=== PATIENT | female | born 1950 | race Caucasian/White ===

== ENCOUNTER → 2019-02-06 | Outpatient (CLI) | payer MEDICARE ==
--- NOTE | 2019-02-06 15:09 | US ---
EXAMINATION TYPE: US thyroid st tissue head/neck DATE OF EXAM: 02/06/2019 COMPARISON: NONE CLINICAL HISTORY: R22.1 Localized swelling, mass and lump, neck. Hashimotos GLAND SIZE: Right Lobe: 4.5 x 2.2 x 1.6 cm Overall Parenchyma: heterogenous Left Lobe: 3.3 x 1.2 x 1.1 cm Overall Parenchyma: heterogeneous Isthmus Thickness: .6 cm NODULES RIGHT: # of nodules measured on right: 0 LEFT: # of nodules measured on left: 0 ISTHMUS: # of nodules measured in the isthmus: 0 Bilateral neck scanned, no evidence of lymphadenopathy. IMPRESSION: Normal thyroid ultrasound
== END | disposition home or self-care (01) ==
LOC: RADUSWWP 14:30
PROVIDERS: ATTEND Nurse Practitioner Family
DX: E06.3 Autoimmune thyroiditis (principal)
CPT/HCPCS: 76536

== ENCOUNTER 2023-12-05 09:55 | Inpatient (IN) | payer MEDICARE ==
--- NOTE | 2023-12-05 10:37 | ED ---
General Adult HPI - General Chief complaint: Shortness of Breath Stated complaint: HENNY Time Seen by Provider: 12/05/23 10:10 Source: patient, family, RN notes reviewed, old records reviewed Mode of arrival: wheelchair Limitations: no limitations - History of Present Illness Initial comments: This is a 73-year-old female who presents to the emergency department stating that for the last 2 weeks she has been taking albuterol and Atrovent and she states ever since she started taking it she has been feeling terrible. Patient states she just feels sick and short of breath. Patient states she is not 100% sure why her doctor all of a sudden put her on this. Patient denies fever chills. Patient has a cough. Patient Nuys any chest pain or palpitations. Patient has a headache patient has numbness weakness. Patient states she just feels weak and short of breath. - Related Data Home Medications Medication Instructions Recorded Confirmed Budesonide [Pulmicort] 0.5 mg INHALATION RT-BID 12/05/23 12/05/23 Famotidine [Pepcid] 20 mg PO DAILY 12/05/23 12/05/23 Ipratropium-Albuterol Nebulize 3 ml INHALATION RT-QID 12/05/23 12/05/23 [Duoneb 0.5 mg-3 mg/3 ml Soln] Levothyroxine Sodium [Synthroid] 75 mcg PO DAILY 12/05/23 12/05/23 Metoprolol Succinate (ER) [Toprol 100 mg PO DAILY 12/05/23 12/05/23 Xl] Valsartan 320 mg PO DAILY 12/05/23 12/05/23 amLODIPine [Norvasc] 5 mg PO DAILY 12/05/23 12/05/23 Allergies Allergy/AdvReac Type Severity Reaction Status Date / Time No Known Allergies Allergy Verified 12/05/23 10:06 Review of Systems ROS Statement: Those systems with pertinent positive or pertinent negative responses have been documented in the HPI. ROS Other: All systems not noted in ROS Statement are negative. Past Medical History Past Medical History: COPD, GERD/Reflux, Hypertension Past Surgical History: Tonsillectomy Smoking Status: Former smoker Past Alcohol Use History: None Reported Past Drug Use History: None Reported General Exam - General Exam Comments Initial Comments: GENERAL: Patient is well-developed and well-nourished. Patient is nontoxic and well-hyd rated and is in mild distress. ENT: Neck is soft and supple. No significant lymphadenopathy is noted. Oropharynx is clear. Moist mucous membranes. Neck has full range of motion without eliciting any pain. EYES: The sclera were anicteric and conjunctiva were pink and moist. Extraocular movements were intact and pupils were equal round and reactive to light. Eyelids were unremarkable. PULMONARY: Unlabored respirations. Good breath sounds bilaterally. No audible rales rhonchi or wheezing was noted. CARDIOVASCULAR: There is a regular rate and rhythm without any murmurs gallops or rubs. ABDOMEN: Soft and nontender with normal bowel sounds. SKIN: Skin is clear with no lesions or rashes and otherwise unremarkable. NEUROLOGIC: Patient is alert and oriented x3. Cranial nerves II through XII are grossly intact. Motor and sensory are also intact. Normal speech, volume and content. Symmetrical smile. MUSCULOSKELETAL: Normal extremities with adequate strength and full range of motion. 2+ edema more so on the right than the left LYMPHATICS: No significant lymphadenopathy is noted PSYCHIATRIC: Normal psychiatric evaluation. Limitations: no limitations Course Vital Signs 12/05/23 12/05/23 12/05/23 10:07 10:32 11:15 Temperature 98.6 F Pulse Rate 98 Respiratory 20 22 Rate Blood Pressure 133/80 O2 Sat by Pulse 81 L Oximetry 12/05/23 12/05/23 11:40 12:50 Temperature Pulse Rate 97 87 Respiratory 18 18 Rate Blood Pressure 134/80 O2 Sat by Pulse 100 91 L Oximetry Medical Decision Making - Medical Decision Making EKG is interpreted by myself. EKG shows a sinus rhythm with occasional PACs at a rate of 91 bpm. Over the 144 QRS is 122 QT interval 372 QTc is 421. Patient's EKG shows no ST segment elevation or depression. Was pt. sent in by a medical professional or institution (, PA, PATTERN RULER, urgent care, hospital, or long term...) When possible be specific @ -No Did you speak to anyone other than the patient for history (EMS, parent, family, police, friend...)? What history was obtained from this source @ -No Did you review nursing and triage notes (agree or disagree)? Why? @ -I reviewed and agree with nursing and triage notes Were old charts reviewed (outside hosp., previous admission, EMS record, old EKG, old radiological studies, urgent care reports/EKG's, long term records)? Report findings @ -No old charts were reviewed Differential Diagnosis? @ -Differential Dyspnea: Coronary syndrome, arrhythmia, tamponade, asthma, COPD, pulmonary embolism, pneumonia, pneumothorax, pulmonary effusion, anaphylaxis, diabetic ketoacidosis, flailed chest, pulmonary contusion, diaphragmatic rupture, anemia, neuromuscular, this is not meant to be an all-inclusive list. EKG interpreted by me (3pts min.). @ -As above X-rays interpreted by me (1pt min.). @ -Chest x-ray shows COPD with a small pleural effusion CT interpreted by me (1pt min.). @ -CT scan shows no pulmonary embolism no pulmonary edema there is a small pleural effusion. U/S interpreted by me (1pt. min.). @ -None done What testing was considered but not performed or refused? (CT, X-rays, U/S, lab s)? Why? @ -None What meds were considered but not given or refused? Why? @ -None Did you discuss the management of the patient with other professionals (professionals i.e. , PA, PATTERN RULER, lab, RT, psych nurse, clinical social work aide, cartography technician, teacher, security flex officer, case management associate)? Give summary @ -I spoke with Dr. Lynn he wanted to admit the patient admit the patient I consulted Dr. Pagan Was smoking cessation discussed for >3mins.? @ -No Was critical care preformed (if so, how long)? @ -35 minutes Were there social determinants of health that impacted care today? How? (Homelessness, low income, unemployed, alcoholism, drug addiction, transportation, low edu. Level, literacy, decrease access to med. care, long-term, rehab)? @ -No Was there de-escalation of care discussed even if they declined (Discuss DNR or withdrawal of care, Hospice)? DNR status @ -No What co-morbidities impacted this encounter? (DM, HTN, Smoking, COPD, CAD, Cancer, CVA, ARF, Chemo, Hep., AIDS, mental health diagnosis, sleep apnea, morbid obesity)? @ -None Was patient admitted / discharged? Hospital course, mention meds given and route, prescriptions, significant lab abnormalities, going to OR and other pertinent info. @ -COPD exacerbation. Patient did not want albuterol treatments initially however I did order them once we determined there was no other underlying problem. Patient also had Agustín Medrol and Rocephin. I will admit the patient to Dr. Lynn and I consulted Dr. Pagan. Patient's initial pulse ox on ar rival was in the 60s on a few liters the patient is now in the 90s. Undiagnosed new problem with uncertain prognosis? @ -No Drug Therapy requiring intensive monitoring for toxicity (Heparin, Nitro, In sulin, Cardizem)? @ -No Were any procedures done? @ -No Diagnosis/symptom? @ -Acute exacerbation of COPD Acute, or Chronic, or Acute on Chronic? @ -Acute Uncomplicated (without systemic symptoms) or Complicated (systemic symptoms)? @ -Complicated Side effects of treatment? @ -No Exacerbation, Progression, or Severe Exacerbation? @ -No Poses a threat to life or bodily function? How? (Chest pain, [place], ND, pneumonia, PE, COPD, DKA, ARF, appy, cholecystitis, CVA, Diverticulitis, Homicidal, Suicidal, threat to staff... and all critical care pts) @ -Yes this could lead to hypoxia and endorgan dysfunction - Lab Data Result diagrams: 12/05/23 11:00 12/05/23 12:03 Lab Results 12/05/23 12/05/23 12/05/23 Range/Units 11:00 11:00 11:00 WBC 8.1 (3.8-10.6) k/uL RBC 5.71 H (3.80-5.40) m/uL Hgb 18.0 H (11.4-16.0) gm/dL Hct 57.7 H* (34.0-46.0) % MCV 101.0 H (80.0-100.0) fL MCH 31.5 (25.0-35.0) pg MCHC 31.1 (31.0-37.0) g/dL RDW 13.8 (11.5-15.5) % Plt Count 173 (150-450) k/uL MPV 9.4 Neutrophils % 89 % Lymphocytes % 6 % Monocytes % 4 % Eosinophils % 1 % Basophils % 0 % Neutrophils # 7.2 (1.3-7.7) k/uL Lymphocytes # 0.5 L (1.0-4.8) k/uL Monocytes # 0.3 (0-1.0) k/uL Eosinophils # 0.0 (0-0.7) k/uL Basophils # 0.0 (0-0.2) k/uL Hypochromasia Moderate Macrocytosis Slight PT (10.0-12.5) sec INR (<1.2) APTT (22.0-30.0) sec D-Dimer (<0.60) mg/L FEU Sample Site ABG pH (7.35-7.45) ABG pCO2 (35-45) mmHg ABG pO2 (83-108) mmHg ABG HCO3 (21-25) mmol/L ABG Total CO2 (19-24) mmol/L ABG O2 Saturation (94-97) % ABG Base Excess mmol/L Harvey Test Hemoglobin (11.4-16.0) gm/dL FiO2 % Sodium (137-145) mmol/L Potassium (3.5-5.1) mmol/L Chloride (98-107) mmol/L Carbon Dioxide (22-30) mmol/L Anion Gap mmol/L BUN (7-17) mg/dL Creatinine (0.52-1.04) mg/dL Est GFR (CKD-EPI)AfAm (>60 ml/min/1.73 sqM) Est GFR (CKD-EPI)NonAf (>60 ml/min/1.73 sqM) Glucose (74-99) mg/dL Lactic Ac Sepsis Rflx Plasma Lactic Acid Anibal 2.6 H* (0.7-2.0) mmol/L Calcium (8.4-10.2) mg/dL Magnesium (1.6-2.3) mg/dL Total Bilirubin (0.2-1.3) mg/dL AST (14-36) U/L ALT (4-34) U/L Alkaline Phosphatase (38-126) U/L Troponin I (0.000-0.034) ng/mL NT-Pro-B Natriuret Pep pg/mL Total Protein (6.3-8.2) g/dL Albumin (3.5-5.0) g/dL Influenza Type A (PCR) Not Detected (Not Detectd) Influenza Type B (PCR) Not Detected (Not Detectd) RSV (PCR) Not Detected (Not Detectd) SARS-CoV-2 (PCR) Not Detected (Not Detectd) 12/05/23 12/05/23 12/05/23 Range/Units 11:30 11:57 11:57 WBC (3.8-10.6) k/uL RBC (3.80-5.40) m/uL Hgb (11.4-16.0) gm/dL Hct (34.0-46.0) % MCV (80.0-100.0) fL MCH (25.0-35.0) pg MCHC (31.0-37.0) g/dL RDW (11.5-15.5) % Plt Count (150-450) k/uL MPV Neutrophils % % Lymphocytes % % Monocytes % % Eosinophils % % Basophils % % Neutrophils # (1.3-7.7) k/uL Lymphocytes # (1.0-4.8) k/uL Monocytes # (0-1.0) k/uL Eosinophils # (0-0.7) k/uL Basophils # (0-0.2) k/uL Hypochromasia Macrocytosis PT 11.2 (10.0-12.5) sec INR 1.0 (<1.2) APTT 20.1 L (22.0-30.0) sec D-Dimer 1.34 H (<0.60) mg/L FEU Sample Site lrad ABG pH 7.28 L (7.35-7.45) ABG pCO2 76 H* (35-45) mmHg ABG pO2 34 L* (83-108) mmHg ABG HCO3 36 H (21-25) mmol/L ABG Total CO2 38 H (19-24) mmol/L ABG O2 Saturation 56.0 L (94-97) % ABG Base Excess 5.6 mmol/L Harvey Test Yes Hemoglobin 17.1 H (11.4-16.0) gm/dL FiO2 21 % Sodium (137-145) mmol/L Potassium (3.5-5.1) mmol/L Chloride (98-107) mmol/L Carbon Dioxide (22-30) mmol/L Anion Gap mmol/L BUN (7-17) mg/dL Creatinine (0.52-1.04) mg/dL Est GFR (CKD-EPI)AfAm (>60 ml/min/1.73 sqM) Est GFR (CKD-EPI)NonAf (>60 ml/min/1.73 sqM) Glucose (74-99) mg/dL Lactic Ac Sepsis Rflx Plasma Lactic Acid Anibal (0.7-2.0) mmol/L Calcium (8.4-10.2) mg/dL Magnesium (1.6-2.3) mg/dL Total Bilirubin (0.2-1.3) mg/dL AST (14-36) U/L ALT (4-34) U/L Alkaline Phosphatase (38-126) U/L Troponin I <0.012 (0.000-0.034) ng/mL NT-Pro-B Natriuret Pep pg/mL Total Protein (6.3-8.2) g/dL Albumin (3.5-5.0) g/dL Influenza Type A (PCR) (Not Detectd) Influenza Type B (PCR) (Not Detectd) RSV (PCR) (Not Detectd) SARS-CoV-2 (PCR) (Not Detectd) 12/05/23 12/05/23 12/05/23 Range/Units 11:58 11:58 12:03 WBC (3.8-10.6) k/uL RBC (3.80-5.40) m/uL Hgb (11.4-16.0) gm/dL Hct (34.0-46.0) % MCV (80.0-100.0) fL MCH (25.0-35.0) pg MCHC (31.0-37.0) g/dL RDW (11.5-15.5) % Plt Count (150-450) k/uL MPV Neutrophils % % Lymphocytes % % Monocytes % % Eosinophils % % Basophils % % Neutrophils # (1.3-7.7) k/uL Lymphocytes # (1.0-4.8) k/uL Monocytes # (0-1.0) k/uL Eosinophils # (0-0.7) k/uL Basophils # (0-0.2) k/uL Hypochromasia Macrocytosis PT (10.0-12.5) sec INR (<1.2) APTT (22.0-30.0) sec D-Dimer (<0.60) mg/L FEU Sample Site lrad ABG pH 7.30 L (7.35-7.45) ABG pCO2 72 H* (35-45) mmHg ABG pO2 35 L* (83-108) mmHg ABG HCO3 36 H (21-25) mmol/L ABG Total CO2 38 H (19-24) mmol/L ABG O2 Saturation 60.8 L (94-97) % ABG Base Excess 5.7 mmol/L Harvey Test Yes Hemoglobin 17.5 H (11.4-16.0) gm/dL FiO2 21 % Sodium 139 (137-145) mmol/L Potassium 5.0 (3.5-5.1) mmol/L Chloride 99 (98-107) mmol/L Carbon Dioxide 34 H (22-30) mmol/L Anion Gap 6 mmol/L BUN 27 H (7-17) mg/dL Creatinine 0.68 (0.52-1.04) mg/dL Est GFR (CKD-EPI)AfAm >90 (>60 ml/min/1.73 sqM) Est GFR (CKD-EPI)NonAf 86 (>60 ml/min/1.73 sqM) Glucose 101 H (74-99) mg/dL Lactic Ac Sepsis Rflx Y Plasma Lactic Acid Anibal (0.7-2.0) mmol/L Calcium 9.4 (8.4-10.2) mg/dL Magnesium 2.1 (1.6-2.3) mg/dL Total Bilirubin 1.2 (0.2-1.3) mg/dL AST 23 (14-36) U/L ALT 16 (4-34) U/L Alkaline Phosphatase 80 (38-126) U/L Troponin I (0.000-0.034) ng/mL NT-Pro-B Natriuret Pep 3490 pg/mL Total Protein 8.7 H (6.3-8.2) g/dL Albumin 4.8 (3.5-5.0) g/dL Influenza Type A (PCR) (Not Detectd) Influenza Type B (PCR) (Not Detectd) RSV (PCR) (Not Detectd) SARS-CoV-2 (PCR) (Not Detectd) 12/05/23 Range/Units 14:07 WBC (3.8-10.6) k/uL RBC (3.80-5.40) m/uL Hgb (11.4-16.0) gm/dL Hct (34.0-46.0) % MCV (80.0-100.0) fL MCH (25.0-35.0) pg MCHC (31.0-37.0) g/dL RDW (11.5-15.5) % Plt Count (150-450) k/uL MPV Neutrophils % % Lymphocytes % % Monocytes % % Eosinophils % % Basophils % % Neutrophils # (1.3-7.7) k/uL Lymphocytes # (1.0-4.8) k/uL Monocytes # (0-1.0) k/uL Eosinophils # (0-0.7) k/uL Basophils # (0-0.2) k/uL Hypochromasia Macrocytosis PT (10.0-12.5) sec INR (<1.2) APTT (22.0-30.0) sec D-Dimer (<0.60) mg/L FEU Sample Site ABG pH (7.35-7.45) ABG pCO2 (35-45) mmHg ABG pO2 (83-108) mmHg ABG HCO3 (21-25) mmol/L ABG Total CO2 (19-24) mmol/L ABG O2 Saturation (94-97) % ABG Base Excess mmol/L Harvey Test Hemoglobin (11.4-16.0) gm/dL FiO2 % Sodium (137-145) mmol/L Potassium (3.5-5.1) mmol/L Chloride (98-107) mmol/L Carbon Dioxide (22-30) mmol/L Anion Gap mmol/L BUN (7-17) mg/dL Creatinine (0.52-1.04) mg/dL Est GFR (CKD-EPI)AfAm (>60 ml/min/1.73 sqM) Est GFR (CKD-EPI)NonAf (>60 ml/min/1.73 sqM) Glucose (74-99) mg/dL Lactic Ac Sepsis Rflx Plasma Lactic Acid Anibal 1.4 (0.7-2.0) mmol/L Calcium (8.4-10.2) mg/dL Magnesium (1.6-2.3) mg/dL Total Bilirubin (0.2-1.3) mg/dL AST (14-36) U/L ALT (4-34) U/L Alkaline Phosphatase (38-126) U/L Troponin I (0.000-0.034) ng/mL NT-Pro-B Natriuret Pep pg/mL Total Protein (6.3-8.2) g/dL Albumin (3.5-5.0) g/dL Influenza Type A (PCR) (Not Detectd) Influenza Type B (PCR) (Not Detectd) RSV (PCR) (Not Detectd) SARS-CoV-2 (PCR) (Not Detectd) Disposition Clinical Impression: COPD with acute exacerbation Disposition: ADMITTED IP TO THIS HOSP Referrals: Jared Lynn MD [Primary Care Provider] - 1-2 days Time of Disposition: 14:23
[2023-12-05 11:12] LABS: Basophils % (A) 0 %; Eosinophils % (A) 1 %; Hypochromasia Moderate; Lymphocytes # (A) 0.5 k/uL (1.0-4.8); Lymphocytes % (A) 6 %; MCH 31.5 pg (25.0-35.0); MCHC 31.1 g/dL (31.0-37.0); Macrocytosis Slight; Mean Platelet Volume 9.4; Monocytes # (A) 0.3 k/uL (0-1.0); Monocytes % (A) 4 %; Neutrophils # (A) 7.2 k/uL (1.3-7.7); Neutrophils % (A) 89 %; Platelet Count 173 k/uL (150-450); RBC 5.71 m/uL (3.80-5.40); RDW 13.8 % (11.5-15.5); WBC 8.1 k/uL (3.8-10.6)
[2023-12-05 11:32] LABS: HCT 57.7 % (34.0-46.0)
[2023-12-05 11:33] LABS: ABG Base Excess 5.6 mmol/L; ABG HCO3 36 mmol/L (21-25); ABG PH 7.28 (7.35-7.45); ABG TCO2 38 mmol/L (19-24); Allen Test Performed? Yes
[2023-12-05 12:03] LABS: ABG Base Excess 5.7 mmol/L; ABG HCO3 36 mmol/L (21-25); ABG Oxygen Saturation 60.8 % (94-97); ABG TCO2 38 mmol/L (19-24); Allen Test Performed? Yes
[2023-12-05 12:14] LABS: ABG PCO2 76 mmHg (35-45); ABG PO2 34 mmHg (83-108)
[2023-12-05 12:15] LABS: ABG PCO2 72 mmHg (35-45); ABG PO2 35 mmHg (83-108)
[2023-12-05 12:50] LABS: ALT 16 U/L (4-34); AST 23 U/L (14-36); African American GFR (CKD) >90 (>60 ml/min/1.73 sqM); Albumin 4.8 g/dL (3.5-5.0); Alkaline Phosphatase 80 U/L (38-126); Anion Gap 6 mmol/L; Blood Urea Nitrogen 27 mg/dL (7-17); Calcium 9.4 mg/dL (8.4-10.2); Carbon Dioxide 34 mmol/L (22-30); Chloride 99 mmol/L (98-107); Glucose 101 mg/dL (74-99); Magnesium 2.1 mg/dL (1.6-2.3); Non-African American GFR(CKD) 86 (>60 ml/min/1.73 sqM); Sodium 139 mmol/L (137-145); Total Bilirubin 1.2 mg/dL (0.2-1.3); Total Protein 8.7 g/dL (6.3-8.2)
[2023-12-05 12:51] LABS: Partial Thromboplastin Time 20.1 sec (22.0-30.0); Prothrombin Time 11.2 sec (10.0-12.5)
[2023-12-05 12:59] LABS: NT-Pro-B-Type Natriuretic Pept 3490 pg/mL
[2023-12-05] MEDS: FUROSEMIDE 10 MG/ML 4 ML VIAL IV STA (14:31)
--- NOTE | 2023-12-05 14:56 | CT ---
EXAMINATION TYPE: CT chest angio for PE CT DLP: 195.6 mGycm, Automated exposure control for dose reduction was used. DATE OF EXAM: 12/05/2023 1:29 PM COMPARISON: Chest radiograph from same day. CLINICAL INDICATION:Female, 73 years old with history of Elevated D-dimer, shortness of breath; [place] jaime D-dimer, shortness of breath TECHNIQUE/CONTRAST: CTA scan of the thorax is performed with IV Contrast, patient injected with 100 mL of Isovue 370, pul monary embolism protocol. MIP images are created and reviewed. FINDINGS: Pulmonary Artery: There is no evidence for a filling defect within the pulmonary vasculature to sugge st acute pulmonary embolism. The pulmonary artery is mildly prominent measuring 3.0 cm diameter. Lungs/Pleura: Biapical pleural-parenchymal scarring. Moderate centrilobular emphysematous change. No pneumothorax. Small left pleural effusion with adjacent atelectasis. No focal consolidation. Fat fill ed right small Bochdalek hernia. No suspicious pulmonary nodule or mass. Regions of mosaic attenuatio n likely representing air trapping. Airway: Large airways are patent. Heart: Mildly prominent in size. No pericardial effusion. Small coronary artery calcifications. Vasculature: No evidence of thoracic aortic aneurysm. Infrarenal abdominal aortic aneurysm at least 3 .2 cm. Eccentric mural thrombus suggested. Moderate atherosclerotic calcification of the aorta and it s branches. Mild atherosclerotic calcification of the aorta and its branches. Mediastinum: Mildly enlarged mediastinal lymph nodes including an AP window lymph node measuring 1.1 cm (series 401, image 49). Musculoskeletal: No acute osseous abnormalities Soft Tissues: Unremarkable. Lower neck: No significant findings. Upper Abdomen: Small region of low attenuation adjacent to the falciform ligament likely representing focal fatty infiltration.. IMPRESSION: 1. No evidence of pulmonary embolism. 2. Small left pleural effusion with associated atelectasis. 3. Moderate COPD changes. 4. Nonspecific mildly enlarged mediastinal lymph nodes. May be reactive. 5. Partial visualization of infrarenal abdominal aortic aneurysm measuring at least 3.2 cm. [facility], , 12/05/2023 1:39 PM
--- NOTE | 2023-12-05 14:56 | XR ---
EXAMINATION TYPE: XR chest 2V DATE OF EXAM: 12/05/2023 12:40 PM COMPARISON: None TECHNIQUE: XR chest 2V Frontal and lateral views of the chest. CLINICAL INDICATION:Female, 73 years old with history of difficulty breathing; FINDINGS: Lungs/Pleura: Blunting of the left costophrenic angle. Hyperinflation. No focal consolidation or pneu mothorax. Pulmonary vascularity: Mild pulmonary vascular congestion. Heart/mediastinum: Cardiomediastinal silhouette is mildly enlarged. Musculoskeletal: No acute osseous pathology. IMPRESSION: 1. Cardiomegaly, pulmonary vascular congestion and small left pleural effusion. Correlate with BNP f or congestive heart failure. 2. COPD changes. [facility], , 12/05/2023 12:45 PM
[2023-12-05] MEDS ORDERED: IPRATROPIUM-ALBUTEROL 3 ML NEB INHALATION PRN (15:18)
[2023-12-05] MEDS ORDERED: NALOXONE 0.4 MG/ML 1 ML VIAL IVP PRN (15:18)
[2023-12-05] MEDS: IPRATROPIUM-ALBUTEROL 3 ML NEB INHALATION STA (15:34)
[2023-12-05] MEDS: IPRATROPIUM-ALBUTEROL 3 ML NEB INHALATION SCH (15:40)
[2023-12-05] MEDS: ONDANSETRON 4 MG/2 ML VIAL IVP STA (16:26)
[2023-12-05] MEDS: methylPREDNISolone SOD SUCCI 125 MG/2 ML VIAL IV STA (16:27)
[2023-12-05] MEDS: ONDANSETRON 4 MG/2 ML VIAL IVP PRN (16:29)
[2023-12-05] MEDS ORDERED: NITROGLYCERIN OINT 1 INCH/GM PACKET TOPICAL SCH (18:00)
[2023-12-05] MEDS: BUDESONIDE 0.5 MG/2 ML NEBU INHALATION SCH (20:33)
[2023-12-05] MEDS ORDERED: ENALAPRILAT 1.25 MG/ML 1 ML VIAL IVP PRN (21:59)
--- NOTE | 2023-12-05 21:59 | P.HPIM ---
History of Present Illness H&P Date: 12/05/23 HISTORY OF PRESENT ILLNESS: 73-year-old with active medical history of COPD, GERD, hypertension, hyperlipidemia, chronic lower back pain and osteoarthritis who has been seen in our office for the last Few years has not been hospitalized anytime recent. Who presented to the emergency department today complaining of worsening symptoms for last 2 weeks apparently has been taking combined albuterol/ipratropium and DuoNeb nebulizer for the last week and her symptoms become much worse. Patient was seen earlier in the office her oxygenation was quite bit low recommended to be on O2 at home she refused but she agreed to give nebulizer treatment management because her regular rescue inhaler is not working anymore. The claim that since she started her nebulizer treatment that she has not felt good she denies any fever or chills she had mild cough and quite wheezing palpitation and mild exertional symptoms. Also has been having slight headache with generalized weakness she is following sleep easily as well. She was seen and evaluated her laboratory value shows normal CBC but hemoglobin 18.0 hematocrit 57.7 with significant polycythemia secondary to COPD. ABG showed pCO2 of 76 with pO2 of 34 pH of 7.28 and saturation of only 56. Electrolyte and chemistry shows creatinine of 0.68 with GFR of 86 blood sugar was normal normal liver function test total protein was 8.7 with BNP of 3490 lactic acid was slightly elevated As she was on oxygen and treated had improved significantly. Chest x-ray shows cardiomegaly with pulmonary vascular congestion and small left pleural effusion correlate with congestive heart failure and COPD. She had slightly elevated D-dimer and that doing CTA findings with no evidence of pulmonary embolism small left-sided pleural effusion with association of atelectasis, moderate COPD nonspecific mildly enlarged mediastinal lymph node and partially visualization of the infrarenal abdominal aortic aneurysm size 3.2 cm. With the current symptoms patient was started on DuoNeb, Pulmicort, Solu-Medrol, antibiotics with Augmentin was started patient was hospitalized will be seen pulmonary echocardiogram was ordered she will be on diuretics beside updraft antibiotic Solu-Medrol. REVIEW OF SYSTEMS: CONSTITUTIONAL: Well-developed mild respiratory distress EYES: No icterus sclerae, no conjunctivitis. EARS, NOSE, MOUTH, THROAT, and FACE: No sore throat, lymphadenopathy, carotid bruits or deformity. RESPIRATORY: Positive shortness of breath cough and wheezes. CARDIOVASCULAR: Positive PND orthopnea palpitation. GASTROINTESTINAL: No Abd pain, Nausea or vomiting, no Diarrhea or constipation, No GI Bleed, no distention or masses. GENITOURINARY: Negative for Hematuria or UTI, no kidney stones. INTEGUMENT/BREAST: Negative for any muscular injury with mild osteoarthritis.. HEMATOLOGIC/LYMPHATIC: Negative for bleed or purpura. Positive polycythemia. MUSCULOSKELTAL: Generalized arthralgia and myalgia. NEURLOGICAL: No LOC, Sz or syncope, blurred vision dizziness or abnormality.. Mildly tiredness and drowsiness. BEHAVIORAL/PSYCH: Negative. ENDOCRINE: Negative. PHYSICAL EXAMINATION: General Appearance: Alert, cooperative, in mild respiratory distress. Neck HEENT: Supple, no lymphadenopathy, no thyroid enlargement, no carotid bruits. Lungs: Decreased breath sound bilaterally with fine rhonchi positive mild expiratory wheezes. Chest Wall: Decreased expansion with deep inspiration no tenderness and no deformity was found on exam, no costochondral pain or discomfort. Heart: Regular rhythm and rate, S1, S2 positive S3 positive PVCs Back: Symmetric, no curvature, ROM normal, no CVA tenderness. Abdomen: Soft, non-tender, bowel sounds active all four quadrants, no masses, no organomegaly. Extremities: Generalized arthralgia no edema. Pulses: 2+ and symmetric. Skin: Skin color, texture, tugor normal, no rashes or lesions. Neurologic: Alert oriented x3 cranial nerves II through XII intact generalized weakness calling sleep in the middle of her interview., no motor deficit, no abnormal balance or gait. ASSESSMENT AND PLAN: _Acute respiratory failure: Secondary to advanced COPD with severe hypoxia and pulmonary acidosis, patient was started on p.o. updraft and steroid at this point. Will consult pulmonary. _COPD exacerbation: Will require probably oxygen continue updraft treatment and start steroid for now. _Mild diastolic congestive heart failure referral for an echocardiogram will be done patient would benefit from more oxygen, back on blood pressure medication with metoprolol, amlodipine and valsartan will add smaller dose of diuretics at this point. _Severe bronchitis: Patient was started on Augmentin continue medication watch for any positive culture. _Secondary polycythemia: Most likely secondary to COPD and pulmonary hypertension continue to watch blood counts specially with mild hydration to make sure hemoglobin is again to climb higher than what it is otherwise might require phlebotomy. _Hypertension: Remain on valsartan 320, amlodipine 5 and metoprolol succinate 100 mg daily. _Hypothyroidism: Will continue levothyroxine 75 mcg daily. _GI prophylaxis: Patient be discharged on Pepcid 20 mg daily. _DVT prophylaxis: Lovenox 40 mg subcutaneous to be done. CODE STATUS: Full code. Admit patient to the inpatient service for more than 2 night stay. Past Medical History Past Medical History: COPD, GERD/Reflux, Hypertension Past Surgical History: Tonsillectomy Smoking Status: Former smoker Past Alcohol Use History: None Reported Past Drug Use History: None Reported - Past Family History Father Family Medical History: Cancer Additional Family Medical History / Comment(s): lung cancer 1999 Mother Family Medical History: Hypertension Brother(s) Family Medical History: COPD Medications and Allergies Home Medications Medication Instructions Recorded Confirmed Type Budesonide [Pulmicort] 0.5 mg INHALATION RT-BID 12/05/23 12/05/23 History Famotidine [Pepcid] 20 mg PO DAILY 12/05/23 12/05/23 History Ipratropium-Albuterol Nebulize 3 ml INHALATION RT-QID 12/05/23 12/05/23 History [Duoneb 0.5 mg-3 mg/3 ml Soln] Levothyroxine Sodium [Synthroid] 75 mcg PO DAILY 12/05/23 12/05/23 History Metoprolol Succinate (ER) [Toprol 100 mg PO DAILY 12/05/23 12/05/23 History Xl] Valsartan 320 mg PO DAILY 12/05/23 12/05/23 History amLODIPine [Norvasc] 5 mg PO DAILY 12/05/23 12/05/23 History Allergies Allergy/AdvReac Type Severity Reaction Status Date / Time No Known Allergies Allergy Verified 12/05/23 10:06 Physical Exam Vitals: Vital Signs Temp Pulse Resp BP Pulse Ox 12/05/23 12:50 87 18 134/80 91 L 12/05/23 11:40 97 18 100 12/05/23 11:15 81 L 12/05/23 10:32 22 12/05/23 10:07 98.6 F 98 20 133/80 Intake and Output 12/05/23 12/05/23 12/05/23 06:59 14:59 22:59 Other: Weight 55.338 kg Results CBC & Chem 7: 12/08/23 06:02 12/08/23 06:02 Labs: Abnormal Lab Results - Last 24 Hours (Table) 12/05/23 12/05/23 12/05/23 Range/Units 11:00 11:00 11:30 RBC 5.71 H (3.80-5.40) m/uL Hgb 18.0 H (11.4-16.0) gm/dL Hct 57.7 H* (34.0-46.0) % MCV 101.0 H (80.0-100.0) fL Lymphocytes # 0.5 L (1.0-4.8) k/uL APTT (22.0-30.0) sec D-Dimer (<0.60) mg/L FEU ABG pH 7.28 L (7.35-7.45) ABG pCO2 76 H* (35-45) mmHg ABG pO2 34 L* (83-108) mmHg ABG HCO3 36 H (21-25) mmol/L ABG Total CO2 38 H (19-24) mmol/L ABG O2 Saturation 56.0 L (94-97) % Hemoglobin 17.1 H (11.4-16.0) gm/dL Carbon Dioxide (22-30) mmol/L BUN (7-17) mg/dL Glucose (74-99) mg/dL Plasma Lactic Acid Anibal 2.6 H* (0.7-2.0) mmol/L Total Protein (6.3-8.2) g/dL 12/05/23 12/05/23 12/05/23 Range/Units 11:57 11:58 12:03 RBC (3.80-5.40) m/uL Hgb (11.4-16.0) gm/dL Hct (34.0-46.0) % MCV (80.0-100.0) fL Lymphocytes # (1.0-4.8) k/uL APTT 20.1 L (22.0-30.0) sec D-Dimer 1.34 H (<0.60) mg/L FEU ABG pH 7.30 L (7.35-7.45) ABG pCO2 72 H* (35-45) mmHg ABG pO2 35 L* (83-108) mmHg ABG HCO3 36 H (21-25) mmol/L ABG Total CO2 38 H (19-24) mmol/L ABG O2 Saturation 60.8 L (94-97) % Hemoglobin 17.5 H (11.4-16.0) gm/dL Carbon Dioxide 34 H (22-30) mmol/L BUN 27 H (7-17) mg/dL Glucose 101 H (74-99) mg/dL Plasma Lactic Acid Anibal (0.7-2.0) mmol/L Total Protein 8.7 H (6.3-8.2) g/dL
[2023-12-05] MEDS: methylPREDNISolone SOD SUCCI 125 MG/2 ML VIAL IV SCH (22:08)
[2023-12-05 22:27] LABS: Glucose,Whole Blood 120 mg/dL (70-110)
[2023-12-05 22:37] LABS: ABG Oxygen Saturation 87.6 % (94-97); ABG PO2 61 mmHg (83-108); Allen Test Performed? Yes
[2023-12-05 22:42] LABS: ABG PCO2 >98 mmHg (35-45); ABG PH 7.18 (7.35-7.45)
--- NOTE | 2023-12-05 23:57 | XR ---
EXAMINATION TYPE: XR chest 1V portable DATE OF EXAM: 12/05/2023 CLINICAL HISTORY: Difficulty breathing head to be intubated. TECHNIQUE: Two AP portable semiupright view of the are obtained. COMPARISON: Chest x-ray from earlier today FINDINGS: New orogastric tube projects below the diaphragm. Endotracheal tube terminates just superior aortic knob level approximately 5 cm above the srinivasan. Improved inspiration on current study. Lungs remain clear. Cardiac silhouette size is stable and with in normal limits with atherosclerotic change in the aortic knob redemonstrated. Osseous structures ar e intact. IMPRESSION: 1. The new endotracheal and orogastric tubes are satisfactory in position. 2. No acute cardiopulmonary process currently. [facility], , 12/05/2023 11:55 PM
[2023-12-06 00:05] LABS: ABG Base Excess 3.7 mmol/L; ABG HCO3 32 mmol/L (21-25); ABG PCO2 61 mmHg (35-45); ABG PH 7.33 (7.35-7.45); ABG PO2 297 mmHg (83-108); ABG TCO2 34 mmol/L (19-24); Allen Test Performed? Yes
[2023-12-06] MEDS: AMOXIC-POT CLAV 875-125MG 1 EACH TAB PO SCH (00:31)
[2023-12-06 00:57] LABS: Basophils % (A) 0 %; Eosinophils % (A) 0 %; HGB 15.3 gm/dL (11.4-16.0); Hypochromasia Marked; Lymphocytes # (A) 0.2 k/uL (1.0-4.8); Lymphocytes % (A) 3 %; MCH 31.2 pg (25.0-35.0); MCV 103.9 fL (80.0-100.0); Macrocytosis Slight; Monocytes # (A) 0.3 k/uL (0-1.0); Monocytes % (A) 4 %; Neutrophils # (A) 6.5 k/uL (1.3-7.7); Neutrophils % (A) 92 %; Platelet Count 133 k/uL (150-450); RBC 4.91 m/uL (3.80-5.40); RDW 13.4 % (11.5-15.5); WBC 7.1 k/uL (3.8-10.6)
[2023-12-06 01:15] LABS: African American GFR (CKD) 85 (>60 ml/min/1.73 sqM); Anion Gap 5 mmol/L; Blood Urea Nitrogen 30 mg/dL (7-17); Calcium 7.8 mg/dL (8.4-10.2); Carbon Dioxide 32 mmol/L (22-30); Chloride 100 mmol/L (98-107); Glucose 123 mg/dL (74-99); Magnesium 1.8 mg/dL (1.6-2.3); Non-African American GFR(CKD) 74 (>60 ml/min/1.73 sqM); Potassium 5.1 mmol/L (3.5-5.1); Sodium 137 mmol/L (137-145)
[2023-12-06] MEDS ORDERED: FUROSEMIDE 10 MG/ML 4 ML VIAL IV SCH (02:00)
[2023-12-06 02:35] LABS: Glucose,Whole Blood 103 mg/dL (70-110)
--- NOTE | 2023-12-06 04:10 | P.CNPUL ---
History of Present Illness Consult date: 12/06/23 Requesting physician: Shelton Lomeli Reason for consult: COPD Chief complaint: Shortness of breath History of present illness: Patient is a 73-year-old female with past medical history significant for COPD. Patient was admitted with COPD exacerbation as a 3 S. overflow in the emergency department. I received a call on this patient late last night. Apparently, the patient had been unresponsive while in the ER, and placed on BiPAP by the ER provider. I do not believe the rn building was called. After 40 minutes, a follow-up blood gas indicated worsening severe hypercapnic respiratory failure. PaO2 of 61, pCO2 greater than 98, pH of 7.18. She was on BiPAP 12/6 and FiO2 of 40%. Pulling tidal volumes of less than 100. Patient now comatose, unable to protect airway. She was emergently intubated by the BRANDING MACHINE OPERATOR. Postoperative chest x-ray showing the endotracheal tube approximately 5 cm above the srinivasan. Orogastric tube courses into the stomach. No obvious acute cardiopulmonary process. Hyperinflation consistent with COPD. I am evaluating this patient in trauma bay 1. She is intubated. Current ventilator settings include AC, a respiratory rate of 24, tidal volume of 350, FiO2 of 100%, PEEP of 5. The respiratory therapist obtained a repeat ABG showing improvement in the patient's acid-base balance, PaO2 297, pCO2 61, pH of 7.33. FiO2 was dropped to 60%. Reinaldo katz is sedated on propofol at 50 mcg/kg/min.. Synchronous mechanical ventilator. Peak pressures are elevated at 33; static airway pressure 16, and indicating increased airway resistance. No significant airway secretions. Lung sounds are markedly diminished throughout. Blood pressure is a little hypotensive at the moment. We will give a 1 L fluid bolus. CBC: WBC count 8.1, hemoglobin 18, hematocrit 57.7, platelets 173. CMP: Sodium 139, potassium 5, chloride 99, serum bicarb 34, BUN 27, creatinine 0.68, glucose 101. Lactic 1.4. Troponin less than 0.012. NT proBNP 3490. D-dimer was elevated at 1.34. A CT angio protocol was done. No evidence of pulmonary embolism. Small left pleural effusion with associated atelectasis. Moderate centrilobular emphysematous changes. No obvious focal consolidations. Some nonspecific mildly enlarged mediastinal lymphadenopathy. Patient on empiric antibiotics in the form azithromycin and Rocephin. Viral screen negative for influenza, RSV, COVID. Afebrile. Patient is going to be transferred to the intensive care unit when bed available. Review of Systems ROS unobtainable: due to endotracheal tube Past Medical History Past Medical History: COPD, GERD/Reflux, Hypertension Past Surgical History: Tonsillectomy Smoking Status: Former smoker Past Alcohol Use History: None Reported Past Drug Use History: None Reported Medications and Allergies Home Medications Medication Instructions Recorded Confirmed Type Budesonide [Pulmicort] 0.5 mg INHALATION RT-BID 12/05/23 12/05/23 History Famotidine [Pepcid] 20 mg PO DAILY 12/05/23 12/05/23 History Ipratropium-Albuterol Nebulize 3 ml INHALATION RT-QID 12/05/23 12/05/23 History [Duoneb 0.5 mg-3 mg/3 ml Soln] Levothyroxine Sodium [Synthroid] 75 mcg PO DAILY 12/05/23 12/05/23 History Metoprolol Succinate (ER) [Toprol 100 mg PO DAILY 12/05/23 12/05/23 History Xl] Valsartan 320 mg PO DAILY 12/05/23 12/05/23 History amLODIPine [Norvasc] 5 mg PO DAILY 12/05/23 12/05/23 History Allergies Allergy/AdvReac Type Severity Reaction Status Date / Time No Known Allergies Allergy Verified 12/05/23 10:06 Physical Exam Vitals: Vital Signs Temp Pulse Resp BP Pulse Ox FiO2 12/06/23 01:00 67 18 110/67 100 12/06/23 00:30 65 19 121/70 100 12/06/23 00:13 60 12/05/23 23:45 79 24 115/62 100 12/05/23 23:30 81 105/76 100 12/05/23 23:18 100 12/05/23 23:17 100 12/05/23 23:00 73 88/62 91 L 12/05/23 22:45 105/59 12/05/23 22:20 40 12/05/23 22:06 73 16 114/82 90 L 12/05/23 21:22 71 16 105/55 94 L 12/05/23 19:53 75 16 115/62 91 L 12/05/23 19:00 69 20 91 L 12/05/23 18:00 69 20 93 L 12/05/23 17:00 71 20 93 L 12/05/23 16:00 79 20 131/70 95 12/05/23 15:00 67 20 125/71 95 12/05/23 14:00 67 20 130/78 91 L 12/05/23 13:00 76 134/80 12/05/23 12:50 87 18 134/80 91 L 12/05/23 12:49 75 137/80 91 L 12/05/23 11:40 97 18 100 12/05/23 11:15 81 L 12/05/23 10:32 22 12/05/23 10:07 98.6 F 98 20 133/80 Intake and Output 12/05/23 12/05/23 12/06/23 14:59 22:59 06:59 Intake Total 7.610 Balance 7.610 Intake: Intake, IV Titration 7.610 Amount propofoL 1,000 mg In 7.610 Empty Bag 1 bag @ 15 MCG/ KG/MIN 4.98 mls/hr IV . Q20H5M [facility] Rx#:[id number] Other: Weight 55.338 kg GENERAL EXAM: Sedated on propofol, unresponsive, synchronous with mechanical ventilator. HEAD: Normocephalic and atraumatic EYES: Normal reaction of pupils, equal size. NOSE: Clear with pink turbinates. THROAT: No erythema or exudates. NECK: No masses, no JVD. CHEST: No chest wall deformity. LUNGS: Equal air entry with markedly diminished lung sounds throughout. No crackles, wheezes, rhonchi, focal dullness. Intubated to the mechanical ventilator and synchronous with set rate. Increased airway resistance. No significant endotracheal secretions. CVS: S1 and S2 normal with no audible murmur, regular rhythm. No extra heart sounds ABDOMEN: No hepatosplenomegaly, active bowel sounds, no guarding or rigidity. SPINE: No scoliosis or deformity SKIN: No rashes CENTRAL NERVOUS SYSTEM: Sedated and only withdraws to painful stimuli in all 4 extremities. EXTREMITIES: There is no peripheral edema, clubbing, or cyanosis. Peripheral pulses are intact. Results - Laboratory Findings CBC and BMP: 12/06/23 05:38 12/06/23 05:38 ABG ABG pH 7.33 (7.35-7.45) L 12/05/23 23:58 ABG pCO2 61 mmHg (35-45) H 12/05/23 23:58 ABG pO2 297 mmHg (83-108) H 12/05/23 23:58 ABG O2 Saturation 100.0 % (94-97) H 12/05/23 23:58 PT/INR, D-dimer PT 11.2 sec (10.0-12.5) 12/05/23 11:57 INR 1.0 (<1.2) 12/05/23 11:57 D-Dimer 1.34 mg/L FEU (<0.60) H 12/05/23 11:57 Abnormal lab findings: Abnormal Labs 12/05/23 12/05/23 12/05/23 00:35 11:00 11:00 RBC 5.71 H Hgb 18.0 H Hct 51.0 H 57.7 H* MCV 103.9 H 101.0 H MCHC 30.0 L Plt Count 133 L Lymphocytes # 0.2 L 0.5 L APTT D-Dimer ABG pH ABG pCO2 ABG pO2 ABG HCO3 ABG Total CO2 ABG O2 Saturation Hemoglobin Carbon Dioxide BUN Glucose POC Glucose (mg/dL) Plasma Lactic Acid Anibal 2.6 H* Total Protein 12/05/23 12/05/23 12/05/23 11:30 11:57 11:58 RBC Hgb Hct MCV MCHC Plt Count Lymphocytes # APTT 20.1 L D-Dimer 1.34 H ABG pH 7.28 L 7.30 L ABG pCO2 76 H* 72 H* ABG pO2 34 L* 35 L* ABG HCO3 36 H 36 H ABG Total CO2 38 H 38 H ABG O2 Saturation 56.0 L 60.8 L Hemoglobin 17.1 H 17.5 H Carbon Dioxide BUN Glucose POC Glucose (mg/dL) Plasma Lactic Acid Anibal Total Protein 12/05/23 12/05/23 12/05/23 12:03 22:25 22:34 RBC Hgb Hct MCV MCHC Plt Count Lymphocytes # APTT D-Dimer ABG pH 7.18 L* ABG pCO2 >98 H* ABG pO2 61 L ABG HCO3 ABG Total CO2 ABG O2 Saturation 87.6 L Hemoglobin 17.3 H Carbon Dioxide 34 H BUN 27 H Glucose 101 H POC Glucose (mg/dL) 120 H Plasma Lactic Acid Anibal Total Protein 8.7 H 12/05/23 23:58 RBC Hgb Hct MCV MCHC Plt Count Lymphocytes # APTT D-Dimer ABG pH 7.33 L ABG pCO2 61 H ABG pO2 297 H ABG HCO3 32 H ABG Total CO2 34 H ABG O2 Saturation 100.0 H Hemoglobin Carbon Dioxide BUN Glucose POC Glucose (mg/dL) Plasma Lactic Acid Anibal Total Protein - Diagnostic Findings Chest x-ray: image reviewed CT scan - chest: image reviewed Assessment and Plan Assessment: Acute hypoxemic and hypercapnic respiratory failure, secondary to acute COPD exacerbation, requiring rapid sequence intubation in the emergency department Hypercapnic encephalopathy/comatose state Chronic obstructive pulmonary disease Polycythemia History of hypertension History of hypothyroidism Plan: Patient's medications, labs, chest x-ray reviewed Patient was placed on BiPAP by the ER provider, unfortunately, failed her brief trial. By the time I was alerted of this patient she was unresponsive, comatose, and unable to protect her airway. I recommended intubation, which was performed by the BRANDING MACHINE OPERATOR. Continue current ventilator settings, wean FiO2 as tolerated Follow-up ABG showing improvement in the patient's hypercapnia Continue sedation with propofol, and titrate for appropriate RASS of 0 to -1 Start combination of bronchodilators [id number], formoterol and budesonide inhalations, and IV Solu-Medrol Empirically covered on a combination of Rocephin and azithromycin Patient was given a 1 L crystalloid fluid bolus postintubation for hypotension, blood pressure seems to have improved Check procalcitonin level Chest CT angio unremarkable for pulmonary embolism, trace left pleural effusion Viral panel negative for influenza, RSV, COVID Echocardiogram pending for the morning GI prophylaxis: Protonix DVT prophylaxis: Heparin subcu We will continue to follow, patient will be transferred to the intensive care unit once bed available I have personally seen and examined the patient, performed the documentation and the assessment and plan as written. Number of minutes spent on the visit:20 This is a joint evaluation. With the nurse practitioner. This evaluation was done more than 30 minutes. The patient was brought into the intensive care unit intubated on the mechanical ventilator. The patient failed BiPAP therapy due to hypercapnic respiratory failure and the patient accordingly was intubated. The peak airway pressures 29. The plateau airway pressures 12. The patient remains bronchospastic and wheezy. Remains on a combination of Perforomist and Pulmicort updrafts and DuoNeb updrafts [id number] and IV Solu-Medrol. The viral screen has been negative and the patient is covered with a combination of Rocephin and Zithromax. Hemodynamically stable. CT angiogram was negative for pulmonary embolism and there was only emphysema and small left-sided pleural effusion. Echocardiogram is pending for now. The patient is well sedated and calm and comfortable and hemodynamically stable. Condition remains critical and will continue to follow. Time with Patient: Greater than 30
[2023-12-06 05:25] LABS: ABG Base Excess 7.1 mmol/L; ABG HCO3 31 mmol/L (21-25); ABG Oxygen Saturation 99.8 % (94-97); ABG PCO2 40 mmHg (35-45); ABG PO2 132 mmHg (83-108); ABG TCO2 32 mmol/L (19-24); Allen Test Performed? Yes
[2023-12-06] MEDS: LEVOTHYROXINE 75 MCG TAB PO SCH (06:12)
[2023-12-06] MEDS: IPRATROPIUM-ALBUTEROL 3 ML NEB INHALATION SCH (06:13)
[2023-12-06 06:16] LABS: Basophils % (A) 0 %; Eosinophils % (A) 0 %; HCT 54.9 % (34.0-46.0); HGB 17.9 gm/dL (11.4-16.0); Hypochromasia Slight; Lymphocytes # (A) 0.4 k/uL (1.0-4.8); Lymphocytes % (A) 6 %; MCH 32.2 pg (25.0-35.0); MCHC 32.6 g/dL (31.0-37.0); MCV 98.8 fL (80.0-100.0); Mean Platelet Volume 10.2; Monocytes # (A) 0.5 k/uL (0-1.0); Monocytes % (A) 7 %; Neutrophils # (A) 5.8 k/uL (1.3-7.7); Neutrophils % (A) 86 %; Platelet Count 120 k/uL (150-450); RBC 5.56 m/uL (3.80-5.40); WBC 6.8 k/uL (3.8-10.6)
[2023-12-06 06:17] LABS: ALT 16 U/L (4-34); AST 37 U/L (14-36); African American GFR (CKD) >90 (>60 ml/min/1.73 sqM); Albumin 4.6 g/dL (3.5-5.0); Alkaline Phosphatase 63 U/L (38-126); Anion Gap 10 mmol/L; Blood Urea Nitrogen 31 mg/dL (7-17); Carbon Dioxide 29 mmol/L (22-30); Chloride 99 mmol/L (98-107); Glucose 95 mg/dL (74-99); Non-African American GFR(CKD) 84 (>60 ml/min/1.73 sqM); Potassium 5.5 mmol/L (3.5-5.1); Sodium 138 mmol/L (137-145); Total Bilirubin 2.2 mg/dL (0.2-1.3); Total Protein 8.1 g/dL (6.3-8.2)
[2023-12-06] MEDS: BUDESONIDE 1 MG/2 ML NEBU INHALATION SCH (07:53)
[2023-12-06] MEDS: FORMOTEROL FUMARATE 20 MCG/2 ML NEBU INHALATION SCH (07:53)
--- NOTE | 2023-12-06 07:55 | P.PN ---
Subjective 73-year-old with active medical history of COPD, GERD, hypertension, hyperlipidemia, chronic lower back pain and osteoarthritis who has been seen in our office for the last Few years has not been hospitalized anytime recent. Who presented to the emergency department today complaining of worsening symptoms for last 2 weeks apparently has been taking combined albuterol/ipratropium and DuoNeb nebulizer for the last week and her symptoms become much worse. Patient was seen earlier in the office her oxygenation was quite bit low recommended to be on O2 at home she refused but she agreed to give nebulizer treatment management because her regular rescue inhaler is not working anymore. The claim that since she started her nebulizer treatment that she has not felt good she denies any fever or chills she had mild cough and quite wheezing palpitation and mild exertional symptoms. Also has been having slight headache with generalized weakness she is following sleep easily as well. She was seen and evaluated her laboratory value shows normal CBC but hemoglobin 18.0 hematocrit 57.7 with significant polycythemia secondary to COPD. ABG showed pCO2 of 76 with pO2 of 34 pH of 7.28 and saturation of only 56. Electrolyte and chemistry shows creatinine of 0.68 with GFR of 86 blood sugar was normal normal liver function test total protein was 8.7 with BNP of 3490 lactic acid was slightly elevated As she was on oxygen and treated had improved significantly. Chest x-ray shows cardiomegaly with pulmonary vascular congestion and small left pleural effusion correlate with congestive heart failure and COPD. She had slightly elevated D-dimer and that doing CTA findings with no evidence of pulmonary embolism small left-sided pleural effusion with association of atelectasis, moderate COPD nonspecific mildly enlarged mediastinal lymph node and partially visualization of the infrarenal abdominal aortic aneurysm size 3.2 cm. With the current symptoms patient was started on DuoNeb, Pulmicort, Solu-Medrol, antibiotics with Augmentin was started patient was hospitalized will be seen pulmonary echocardiogram was ordered she will be on diuretics beside updraft antibiotic Solu-Medrol. 12/05 Patient currently remains in ER hold pending ICU bed availability. She is intubated and on mechanical ventilation. Afebrile, tachypneic with heart rate about 77 and breathing rate 20-24. Labs reviewed, hemoglobin is 18. D-dimer was elevated at 1.34 pH was low but improving 7.1 up to 7.3, pCO2 is also improving 76 down to 71 CTA of the chest was negative for acute PE but showing COPD with enlarged mediastinal lymphadenopathy Currently she is covered with IV Solu-Medrol 60 mg and antibiotic Zithromax and ceftriaxone Active Medications Generic Name Dose Route Start Last Admin Trade Name Freq PRN Reason Stop Dose Admin Albuterol/Ipratropium 3 ml 12/05/23 15:18 Ipratropium-Albuterol 3 Ml Neb INHALATION RT-Q2H PRN Shortness Of Breath Or Wheezing Albuterol/Ipratropium 3 ml 12/06/23 00:00 12/06/23 07:53 Ipratropium-Albuterol 3 Ml Neb INHALATION 3 ml RT-Q4H BRUCE Administration Amlodipine Besylate 5 mg 12/06/23 09:00 Amlodipine 5 Mg Tab PO DAILY BRUCE Budesonide 1 mg 12/06/23 08:00 12/06/23 07:53 Budesonide 1 Mg/2 Ml Nebu INHALATION 1 mg RT-BID BRUCE Administration Chlorhexidine Gluconate 15 ml 12/06/23 08:00 Chlorhexidine Gluconate 15 Ml Cup MUCOUS MEM RT-BID BRUCE Enalaprilat 2.5 mg 12/05/23 21:59 Enalaprilat 1.25 Mg/Ml 1 Ml Vial IVP Q6HR PRN Blood Pressure - High Famotidine 20 mg 12/06/23 09:00 Famotidine 20 Mg Tab PO DAILY BRUCE Formoterol Fumarate 20 mcg 12/06/23 08:00 12/06/23 07:53 Formoterol Fumarate 20 Mcg/2 Ml Nebu INHALATION 20 mcg RT-BID BRUCE Administration Heparin Sodium (Porcine) 5,000 unit 12/06/23 09:00 Heparin Sodium,Porcine 5,000 Unit/Ml 1 Ml Vial SQ Q12HR BRUCE Azithromycin 500 mg/ Sodium 250 mls @ 250 mls/hr 12/06/23 09:00 Chloride IVPB 12/08/23 09:59 DAILY BRUCE Protocol Ceftriaxone Sodium 1 gm/ 50 mls @ 100 mls/hr 12/06/23 09:00 Sodium Chloride IVPB Q24HR BRUCE Protocol Propofol 1,000 mg/ IV Solution 100 mls @ 4.98 mls/hr 12/05/23 23:45 12/06/23 05:08 IV 50 mcg/kg/min .Q20H5M BRUCE 16.601 mls/hr Administration Protocol 15 MCG/KG/MIN Insulin Aspart 0 unit 12/06/23 07:30 Insulin Aspart (Novolog) 100 Unit/Ml Vial SQ ACHS [facility] Levothyroxine Sodium 75 mcg 12/06/23 06:30 12/06/23 06:12 Levothyroxine 75 Mcg Tab PO 75 mcg DAILY@0630 [facility] Administration Methylprednisolone Sodium Succinate 60 mg 12/05/23 21:00 12/06/23 03:40 Methylprednisolone Sod Succi 125 Mg/2 Ml Vial IV 60 mg Q6H [facility] Administration Metoprolol Succinate 100 mg 12/06/23 09:00 Metoprolol Succinate (Er) 100 Mg Tab.Er.24h PO DAILY [facility] Naloxone HCl 0.2 mg 12/05/23 15:18 Naloxone 0.4 Mg/Ml 1 Ml Vial IVP Q2M PRN Opioid Reversal Ondansetron HCl 4 mg 12/05/23 16:25 12/05/23 16:29 Ondansetron 4 Mg/2 Ml Vial IVP 4 mg Q6HR PRN Administration Nausea And Vomiting Pantoprazole Sodium 40 mg 12/06/23 09:00 Pantoprazole 40 Mg/10 Ml Vial IV DAILY [facility] Valsartan 320 mg 12/06/23 09:00 Valsartan 160 Mg Tab PO DAILY [facility] Objective - Vital Signs Vital signs: Vital Signs Temp 98.6 F 12/05/23 10:07 Pulse 77 12/06/23 07:22 Resp 20 12/06/23 07:22 BP 149/90 12/06/23 07:22 Pulse Ox 99 12/06/23 07:22 FiO2 40 12/06/23 07:49 Intake & Output 12/05/23 12/06/23 12/06/23 18:59 06:59 18:59 Intake Total 80.877 Balance 80.877 Weight 55.338 kg Intake: Intake, IV Titration 80.877 Amount propofoL 1,000 mg In 80.877 Empty Bag 1 bag @ 15 MCG/ KG/MIN 4.98 mls/hr IV . Q20H5M [facility] Rx#:[id number] - Exam -GENERAL: The patient is sedated and intubated HEENT: Pupils are round and equally reacting to light. EOMI. No scleral icterus. No conjunctival pallor. Normocephalic, atraumatic. No pharyngeal erythema. No thyromegaly. CARDIOVASCULAR: S1 and S2 present. No murmurs, rubs, or gallops. -PULMONARY: Bilateral limited air entry on both sides, no wheezing , no crackles. ABDOMEN: Soft, nontender, nondistended, normoactive bowel sounds. No palpable organomegaly. MUSCULOSKELETAL: No joint swelling or deformity. EXTREMITIES: No cyanosis, clubbing, or pedal edema. NEUROLOGICAL: Gross neurological examination did not reveal any focal deficits. SKIN: No rashes. no petechiae. - Labs CBC & Chem 7: 12/06/23 05:38 12/06/23 05:38 Labs: Abnormal Lab Results - Last 24 Hours (Table) 12/05/23 12/05/23 12/05/23 Range/Units 00:35 00:35 11:00 RBC 5.71 H (3.80-5.40) m/uL Hgb 18.0 H (11.4-16.0) gm/dL Hct 51.0 H 57.7 H* (34.0-46.0) % MCV 103.9 H 101.0 H (80.0-100.0) fL MCHC 30.0 L (31.0-37.0) g/dL Plt Count 133 L (150-450) k/uL Lymphocytes # 0.2 L 0.5 L (1.0-4.8) k/uL APTT (22.0-30.0) sec D-Dimer (<0.60) mg/L FEU ABG pH (7.35-7.45) ABG pCO2 (35-45) mmHg ABG pO2 (83-108) mmHg ABG HCO3 (21-25) mmol/L ABG Total CO2 (19-24) mmol/L ABG O2 Saturation (94-97) % Hemoglobin (11.4-16.0) gm/dL Potassium (3.5-5.1) mmol/L Carbon Dioxide 32 H (22-30) mmol/L BUN 30 H (7-17) mg/dL Glucose 123 H (74-99) mg/dL POC Glucose (mg/dL) (70-110) mg/dL Plasma Lactic Acid Anibal (0.7-2.0) mmol/L Calcium 7.8 L (8.4-10.2) mg/dL Total Bilirubin (0.2-1.3) mg/dL AST (14-36) U/L Total Protein (6.3-8.2) g/dL 12/05/23 12/05/23 12/05/23 Range/Units 11:00 11:30 11:57 RBC (3.80-5.40) m/uL Hgb (11.4-16.0) gm/dL Hct (34.0-46.0) % MCV (80.0-100.0) fL MCHC (31.0-37.0) g/dL Plt Count (150-450) k/uL Lymphocytes # (1.0-4.8) k/uL APTT 20.1 L (22.0-30.0) sec D-Dimer 1.34 H (<0.60) mg/L FEU ABG pH 7.28 L (7.35-7.45) ABG pCO2 76 H* (35-45) mmHg ABG pO2 34 L* (83-108) mmHg ABG HCO3 36 H (21-25) mmol/L ABG Total CO2 38 H (19-24) mmol/L ABG O2 Saturation 56.0 L (94-97) % Hemoglobin 17.1 H (11.4-16.0) gm/dL Potassium (3.5-5.1) mmol/L Carbon Dioxide (22-30) mmol/L BUN (7-17) mg/dL Glucose (74-99) mg/dL POC Glucose (mg/dL) (70-110) mg/dL Plasma Lactic Acid Anibal 2.6 H* (0.7-2.0) mmol/L Calcium (8.4-10.2) mg/dL Total Bilirubin (0.2-1.3) mg/dL AST (14-36) U/L Total Protein (6.3-8.2) g/dL 12/05/23 12/05/23 12/05/23 Range/Units 11:58 12:03 22:25 RBC (3.80-5.40) m/uL Hgb (11.4-16.0) gm/dL Hct (34.0-46.0) % MCV (80.0-100.0) fL MCHC (31.0-37.0) g/dL Plt Count (150-450) k/uL Lymphocytes # (1.0-4.8) k/uL APTT (22.0-30.0) sec D-Dimer (<0.60) mg/L FEU ABG pH 7.30 L (7.35-7.45) ABG pCO2 72 H* (35-45) mmHg ABG pO2 35 L* (83-108) mmHg ABG HCO3 36 H (21-25) mmol/L ABG Total CO2 38 H (19-24) mmol/L ABG O2 Saturation 60.8 L (94-97) % Hemoglobin 17.5 H (11.4-16.0) gm/dL Potassium (3.5-5.1) mmol/L Carbon Dioxide 34 H (22-30) mmol/L BUN 27 H (7-17) mg/dL Glucose 101 H (74-99) mg/dL POC Glucose (mg/dL) 120 H (70-110) mg/dL Plasma Lactic Acid Anibal (0.7-2.0) mmol/L Calcium (8.4-10.2) mg/dL Total Bilirubin (0.2-1.3) mg/dL AST (14-36) U/L Total Protein 8.7 H (6.3-8.2) g/dL 12/05/23 12/05/23 12/06/23 Range/Units 22:34 23:58 05:17 RBC (3.80-5.40) m/uL Hgb (11.4-16.0) gm/dL Hct (34.0-46.0) % MCV (80.0-100.0) fL MCHC (31.0-37.0) g/dL Plt Count (150-450) k/uL Lymphocytes # (1.0-4.8) k/uL APTT (22.0-30.0) sec D-Dimer (<0.60) mg/L FEU ABG pH 7.18 L* 7.33 L 7.50 H (7.35-7.45) ABG pCO2 >98 H* 61 H (35-45) mmHg ABG pO2 61 L 297 H 132 H (83-108) mmHg ABG HCO3 32 H 31 H (21-25) mmol/L ABG Total CO2 34 H 32 H (19-24) mmol/L ABG O2 Saturation 87.6 L 100.0 H 99.8 H (94-97) % Hemoglobin 17.3 H (11.4-16.0) gm/dL Potassium (3.5-5.1) mmol/L Carbon Dioxide (22-30) mmol/L BUN (7-17) mg/dL Glucose (74-99) mg/dL POC Glucose (mg/dL) (70-110) mg/dL Plasma Lactic Acid Anibal (0.7-2.0) mmol/L Calcium (8.4-10.2) mg/dL Total Bilirubin (0.2-1.3) mg/dL AST (14-36) U/L Total Protein (6.3-8.2) g/dL 12/06/23 12/06/23 Range/Units 05:38 05:38 RBC 5.56 H (3.80-5.40) m/uL Hgb 17.9 H (11.4-16.0) gm/dL Hct 54.9 H (34.0-46.0) % MCV (80.0-100.0) fL MCHC (31.0-37.0) g/dL Plt Count 120 L (150-450) k/uL Lymphocytes # 0.4 L (1.0-4.8) k/uL APTT (22.0-30.0) sec D-Dimer (<0.60) mg/L FEU ABG pH (7.35-7.45) ABG pCO2 (35-45) mmHg ABG pO2 (83-108) mmHg ABG HCO3 (21-25) mmol/L ABG Total CO2 (19-24) mmol/L ABG O2 Saturation (94-97) % Hemoglobin (11.4-16.0) gm/dL Potassium 5.5 H (3.5-5.1) mmol/L Carbon Dioxide (22-30) mmol/L BUN 31 H (7-17) mg/dL Glucose (74-99) mg/dL POC Glucose (mg/dL) (70-110) mg/dL Plasma Lactic Acid Anibal (0.7-2.0) mmol/L Calcium (8.4-10.2) mg/dL Total Bilirubin 2.2 H (0.2-1.3) mg/dL AST 37 H (14-36) U/L Total Protein (6.3-8.2) g/dL Assessment and Plan Assessment: ASSESSMENT AND PLAN: _Acute respiratory failure: Secondary to advanced COPD with severe hypoxia and pulmonary acidosis, patient was started on p.o. updraft and steroid at this point. pulmonary team on the case. Patient currently intubated and on mechanical ventilation _COPD exacerbation: Will require probably oxygen continue updraft treatment and start steroid for now. Continue with IV Solu-Medrol _Mild diastolic congestive heart failure referral for an echocardiogram will be done patient would benefit from more oxygen, back on blood pressure medication with metoprolol, amlodipine and valsartan will add smaller dose of diuretics at this point. _Severe bronchitis: Patient was started on Augmentin continue medication watch for any positive culture. _Secondary polycythemia: Most likely secondary to COPD and pulmonary hypertension continue to watch blood counts specially with mild hydration to make sure hemoglobin is again to climb higher than what it is otherwise might require phlebotomy. _Hypertension: Remain on valsartan 320, amlodipine 5 and metoprolol succinate 100 mg daily. _Hypothyroidism: Will continue levothyroxine 75 mcg daily. _GI prophylaxis: Patient be discharged on Pepcid 20 mg daily. _DVT prophylaxis: Lovenox 40 mg subcutaneous to be done. CODE STATUS: Full code. Admit patient to the inpatient service for more than 2 night stay.
[2023-12-06 08:28] LABS: Glucose,Whole Blood 92 mg/dL (70-110)
[2023-12-06] MEDS: FAMOTIDINE 20 MG TAB PO SCH (08:29)
[2023-12-06] MEDS: amLODIPine 5 MG TAB PO SCH (08:29)
[2023-12-06] MEDS: METOPROLOL SUCCINATE (ER) 100 MG TAB.ER.24H PO SCH (08:29)
[2023-12-06] MEDS: PANTOPRAZOLE 40 MG/10 ML VIAL IV SCH (08:30)
[2023-12-06] MEDS: INSULIN ASPART (NovoLOG) 100 UNIT/ML VIAL SQ SCH (08:31)
[2023-12-06] MEDS: HEPARIN SODIUM,PORCINE 5,000 UNIT/ML 1 ML VIAL SQ SCH (08:32)
[2023-12-06] MEDS ORDERED: ENOXAPARIN 40 MG/0.4 ML SYRINGE SQ SCH (09:00)
--- NOTE | 2023-12-06 09:26 | CDI ---
Documentation Clarification Form Date: 12/06/2023 08:58:43 AM From: Izabel Breen RN CCDS Phone: [phone] Admit Date: 12/05/2023 03:20:00 PM Patient Name: Ashley Roberts Visit Number: [id number] Discharge Date: ATTENTION: The Clinical Documentation Specialists (CDI) and [facility] Coding Staff appreciate your assistance in clarifying documentation. Please respond to the clarification below the line at the bottom and electronically sign. The CDI & [facility] Coding staff will review the response and follow-up if needed. Please note: Queries are made part of the Legal Health Record. If you have any questions, please contact the author of this message via ITS. Doctor: Kavon E Sheet Your patient has the documented diagnosis of Diastolic Congestive Heart Failure 12/06/2023, Medicine note. Additional information regarding the acuity of CHF is requested. History/Risk Factors: 73 year old female presents to the ED for worsening symptoms for last two weeks for cough, wheezing, mild exertional symptoms, headache and generalized weakness after taking albuterol/ipratropium and duoenb nebulizer symptoms became worse. Medical history: CHF, COPD, HTN and hypothyroidism. 12/04, HP. Clinical Indicators: VS/Pulse OX: 12/04 B/P 133/80; HR 98; Temp 98.6F Oral; RR 20; SpO2 81%4L nc BNP, 12/04: 3490 Chest X Ray, 12/04: Cardiomegaly, pulmonary vascular congestion and small left pleural effusion. Treatment: 12/04 Lasix 40mg IV x 1; Toprol Xl 100mg PO Daily In your professional opinion, can you please clarify the acuity of CHF if known? [x ] Chronic Diastolic Heart Failure (preserved EF) [ ] Acute on Chronic Diastolic Heart Failure (preserved EF) [ ] Other, please specify [ ] Unable to determine (Template Last Revised: March 2020) MTDD
[2023-12-06] MEDS: AZITHROMYCIN 500 MG in SODIUM CHLORIDE 0.9% 250 ML IVPB SCH (09:44)
[2023-12-06] MEDS: VALSARTAN 160 MG TAB PO SCH (09:44)
[2023-12-06] MEDS: CHLORHEXIDINE GLUCONATE 15 ML CUP MUCOUS MEM SCH (09:44)
[2023-12-06 10:27] LABS: Glucose,Whole Blood 92 mg/dL (70-110)
--- NOTE | 2023-12-06 15:40 | CA ---
Transthoracic Echo Report Name: Ashley Roberts Age: 73 Gender: F : 1950 Exam Date: 12/06/2023 08:03 Exam Location: [facility] Ht (in): 64 Wt (lb): 122 Ordering Physician: Jared Lynn MD Attending/Referring Phys: [employer] Estate Transaction Manager Colleen Maher RDCS Procedure CPT: Indications: lvfunction Cardiac Hx: Technical Quality: Fair Contrast 1: Total Dose (mL): Contrast 2: Total Dose (mL): MEASUREMENTS (Male / Female) Normal Values 2D ECHO LV Diastolic Diameter PLAX 3.6 cm 4.2 - 5.9 / 3.9 - 5.3 cm LV Systolic Diameter PLAX 2.6 cm IVS Diastolic Thickness 0.6 cm 0.6 - 1.0 / 0.6 - 0.9 cm LVPW Diastolic Thickness 0.9 cm 0.6 - 1.0 / 0.6 - 0.9 cm LV Relative Wall Thickness 0.4 LVOT Diameter 1.8 cm DOPPLER AV Peak Velocity 124.8 cm/s AV Peak Gradient 6.2 mmHg AV Mean Velocity 87.5 cm/s AV Mean Gradient 3.3 mmHg AV Velocity Time Integral 22.2 cm LVOT Peak Velocity 112.9 cm/s LVOT Peak Gradient 5.1 mmHg LVOT Velocity Time Integral 18.9 cm LVOT Stroke Volume 49.0 cm??? LVOT Stroke Volume Index 30.9 ml/m??? LVOT Cardiac Index 2727.6 cm???/min???m??? AV Area Cont Eq vti 2.2 cm??? AV Area Cont Eq pk 2.3 cm??? MV Area PHT 5.7 cm??? Mitral E Point Velocity 48.9 cm/s Mitral A Point Velocity 69.9 cm/s Mitral E to A Ratio 0.7 MV Deceleration Time 133.4 ms PV Peak Velocity 100.9 cm/s PV Peak Gradient 4.1 mmHg FINDINGS Left Ventricle Left ventricular ejection fraction is estimated at 55-60 %. Left ventricular cavity size normal. Left ventricular wall thickness normal. No obvious regional wall motion abnormalities. Right Ventricle Normal right ventricular size and function. Unable to estimate the right ventricular systolic pressure. Right Atrium Normal right atrial size. Left Atrium Normal left atrial size. Mitral Valve Structurally normal mitral valve. No mitral stenosis, regurgitation or prolapse. Aortic Valve Trileaflet aortic valve. No aortic stenosis. Trace aortic regurgitation. Tricuspid Valve Structurally normal tricuspid valve. No tricuspid stenosis. No tricuspid regurgitation. Pulmonic Valve Pulmonic valve not well visualized. No pulmonic stenosis. Trace pulmonic regurgitation. Pericardium No pericardial effusion. Aorta Aortic annulus normal. CONCLUSIONS Left ventricular ejection fraction 55-60% No mitral regurgitation No tricuspid regurgitation Trace pulmonic regurgitation No pericardial effusion Previewed by: Dr. William Crooks DO (Electronically Signed) Final Date: 06 December 2023 15:39
[2023-12-06 16:53] LABS: Glucose,Whole Blood 118 mg/dL (70-110)
[2023-12-06 20:32] LABS: Glucose,Whole Blood 126 mg/dL (70-110)
[2023-12-06] MEDS: SODIUM CHLORIDE 0.9% 1,000 ML IV ONE (22:00)
[2023-12-07 03:02] LABS: Basophils % (A) 0 %; Eosinophils % (A) 0 %; Lymphocytes # (A) 0.1 k/uL (1.0-4.8); Lymphocytes % (A) 1 %; MCH 31.4 pg (25.0-35.0); Mean Platelet Volume 9.3; Monocytes # (A) 0.6 k/uL (0-1.0); Monocytes % (A) 5 %; Neutrophils # (A) 10.2 k/uL (1.3-7.7); Neutrophils % (A) 93 %; Platelet Count 123 k/uL (150-450); RBC 4.59 m/uL (3.80-5.40); RDW 14.3 % (11.5-15.5)
[2023-12-07 03:03] LABS: Glucose,Whole Blood 132 mg/dL (70-110)
[2023-12-07 03:18] LABS: HGB 14.4 gm/dL (11.4-16.0)
[2023-12-07 03:22] LABS: African American GFR (CKD) 79 (>60 ml/min/1.73 sqM); Anion Gap 3 mmol/L; Blood Urea Nitrogen 38 mg/dL (7-17); Calcium 7.8 mg/dL (8.4-10.2); Carbon Dioxide 27 mmol/L (22-30); Chloride 107 mmol/L (98-107); Glucose 155 mg/dL (74-99); Non-African American GFR(CKD) 68 (>60 ml/min/1.73 sqM); Potassium 3.2 mmol/L (3.5-5.1); Sodium 137 mmol/L (137-145)
[2023-12-07] MEDS ORDERED: Potassium Replacement Protocol 1 EACH MISC MISCELLANE PRN (04:21)
[2023-12-07] MEDS: POTASSIUM BICARBONATE/CIT AC 20 MEQ TABLET.EFF NG-TUBE SCH (04:30)
[2023-12-07 06:24] LABS: Allen Test Performed? Yes
[2023-12-07 06:25] LABS: ABG Base Excess 1.9 mmol/L; ABG HCO3 28 mmol/L (21-25); ABG Oxygen Saturation 92.9 % (94-97); ABG PCO2 49 mmHg (35-45); ABG PH 7.36 (7.35-7.45); ABG PO2 62 mmHg (83-108); ABG TCO2 30 mmol/L (19-24)
[2023-12-07 06:28] LABS: Glucose,Whole Blood 138 mg/dL (70-110)
--- NOTE | 2023-12-07 06:45 | XR ---
EXAMINATION TYPE: XR chest 1V portable DATE OF EXAM: 12/07/2023 COMPARISON: 12/05/2023 HISTORY: Tube placement TECHNIQUE: Single frontal view of the chest is obtained. FINDINGS: ET tube is 7.8 cm above the srinivasan. There is an NG tube in the stomach. The lungs are clear. There is no pleural effusion or pneumothorax. The heart and pulmonary vasculatur e are within normal limits. The osseous structures are intact. IMPRESSION: No acute process. ET tube 7.8 cm above the srinivasan and NG tube within the stomach. [facility], , 12/07/2023 6:43 AM
[2023-12-07] MEDS: NOREPINEPHRINE 4 MG in SODIUM CHLORIDE 0.9% 250 ML IV SCH (09:30)
[2023-12-07 12:16] LABS: Glucose,Whole Blood 115 mg/dL (70-110)
--- NOTE | 2023-12-07 13:28 | P.PN ---
Subjective 73-year-old with active medical history of COPD, GERD, hypertension, hyperlipidemia, chronic lower back pain and osteoarthritis who has been seen in our office for the last Few years has not been hospitalized anytime recent. Who presented to the emergency department today complaining of worsening symptoms for last 2 weeks apparently has been taking combined albuterol/ipratropium and DuoNeb nebulizer for the last week and her symptoms become much worse. Patient was seen earlier in the office her oxygenation was quite bit low recommended to be on O2 at home she refused but she agreed to give nebulizer treatment management because her regular rescue inhaler is not working anymore. The claim that since she started her nebulizer treatment that she has not felt good she denies any fever or chills she had mild cough and quite wheezing palpitation and mild exertional symptoms. Also has been having slight headache with generalized weakness she is following sleep easily as well. She was seen and evaluated her laboratory value shows normal CBC but hemoglobin 18.0 hematocrit 57.7 with significant polycythemia secondary to COPD. ABG showed pCO2 of 76 with pO2 of 34 pH of 7.28 and saturation of only 56. Electrolyte and chemistry shows creatinine of 0.68 with GFR of 86 blood sugar was normal normal liver function test total protein was 8.7 with BNP of 3490 lactic acid was slightly elevated As she was on oxygen and treated had improved significantly. Chest x-ray shows cardiomegaly with pulmonary vascular congestion and small left pleural effusion correlate with congestive heart failure and COPD. She had slightly elevated D-dimer and that doing CTA findings with no evidence of pulmonary embolism small left-sided pleural effusion with association of atelectasis, moderate COPD nonspecific mildly enlarged mediastinal lymph node and partially visualization of the infrarenal abdominal aortic aneurysm size 3.2 cm. With the current symptoms patient was started on DuoNeb, Pulmicort, Solu-Medrol, antibiotics with Augmentin was started patient was hospitalized will be seen pulmonary echocardiogram was ordered she will be on diuretics beside updraft antibiotic Solu-Medrol. 12/05 Patient currently remains in ER hold pending ICU bed availability. She is intubated and on mechanical ventilation. Afebrile, tachypneic with heart rate about 77 and breathing rate 20-24. Labs reviewed, hemoglobin is 18. D-dimer was elevated at 1.34 pH was low but improving 7.1 up to 7.3, pCO2 is also improving 76 down to 71 CTA of the chest was negative for acute PE but showing COPD with enlarged mediastinal lymphadenopathy Currently she is covered with IV Solu-Medrol 60 mg and antibiotic Zithromax and ceftriaxone 01/06 Patient got extubated today and she is on ventilation mask She denies chest pain Mentation at baseline but she looks tired Patient tachycardic and tachypneic Also today started on Levophed. And he is continued on antibiotic Zithromax and ceftriaxone Objective - Vital Signs Vital signs: Vital Signs Temp 97.3 F L 12/07/23 12:00 Pulse 120 H 12/07/23 12:20 Resp 26 H 12/07/23 12:20 BP 87/51 12/07/23 12:00 Pulse Ox 97 12/07/23 12:00 FiO2 40 12/07/23 12:53 Intake & Output 12/06/23 12/07/23 12/07/23 18:59 06:59 18:59 Intake Total 660 1420.113 497.400 Output Total 230 314 290 Balance 430 1106.113 207.400 Weight 55.338 kg 62 kg Intake: IV 560 1350 130 0.9 60 350 130 Bolus 500 1000 Intake, IV Titration 100 70.113 367.400 Amount Azithromycin 500 mg In 250 Sodium Chloride 0.9% 250 ml @ 250 mls/hr IVPB DAILY [facility] Rx#:[id number] cefTRIAXone 1 gm In 50 Sodium Chloride 0.9% 50 ml @ 100 mls/hr IVPB Q24HR [facility] Rx#:[id number] propofoL 1,000 mg In 100 70.113 67.400 Empty Bag 1 bag @ 15 MCG/ KG/MIN 4.98 mls/hr IV . Q20H5M [facility] Rx#:[id number] Output: Urine 230 314 290 Other: Voiding Method Indwelling Catheter Indwelling Catheter Indwelling Catheter - Exam -GENERAL: The patient is sedated and intubated HEENT: Pupils are round and equally reacting to light. EOMI. No scleral icterus. No conjunctival pallor. Normocephalic, atraumatic. No pharyngeal erythema. No thyromegaly. CARDIOVASCULAR: S1 and S2 present. No murmurs, rubs, or gallops. -PULMONARY: Bilateral limited air entry on both sides, no wheezing , no cr ackles. ABDOMEN: Soft, nontender, nondistended, normoactive bowel sounds. No palpable organomegaly. MUSCULOSKELETAL: No joint swelling or deformity. EXTREMITIES: No cyanosis, clubbing, or pedal edema. NEUROLOGICAL: Gross neurological examination did not reveal any focal deficits. SKIN: No rashes. no petechiae. - Labs CBC & Chem 7: 12/07/23 02:32 12/07/23 07:46 Labs: Abnormal Lab Results - Last 24 Hours (Table) 12/06/23 12/06/23 12/07/23 Range/Units 16:52 20:31 02:32 WBC 11.0 H (3.8-10.6) k/uL Plt Count 123 L (150-450) k/uL Neutrophils # 10.2 H (1.3-7.7) k/uL Lymphocytes # 0.1 L (1.0-4.8) k/uL ABG pCO2 (35-45) mmHg ABG pO2 (83-108) mmHg ABG HCO3 (21-25) mmol/L ABG Total CO2 (19-24) mmol/L ABG O2 Saturation (94-97) % Potassium (3.5-5.1) mmol/L BUN (7-17) mg/dL Glucose (74-99) mg/dL POC Glucose (mg/dL) 118 H 126 H (70-110) mg/dL Calcium (8.4-10.2) mg/dL 12/07/23 12/07/23 12/07/23 Range/Units 02:32 03:00 06:03 WBC (3.8-10.6) k/uL Plt Count (150-450) k/uL Neutrophils # (1.3-7.7) k/uL Lymphocytes # (1.0-4.8) k/uL ABG pCO2 49 H (35-45) mmHg ABG pO2 62 L (83-108) mmHg ABG HCO3 28 H (21-25) mmol/L ABG Total CO2 30 H (19-24) mmol/L ABG O2 Saturation 92.9 L (94-97) % Potassium 3.2 L (3.5-5.1) mmol/L BUN 38 H (7-17) mg/dL Glucose 155 H (74-99) mg/dL POC Glucose (mg/dL) 132 H (70-110) mg/dL Calcium 7.8 L (8.4-10.2) mg/dL 12/07/23 12/07/23 Range/Units 06:27 12:14 WBC (3.8-10.6) k/uL Plt Count (150-450) k/uL Neutrophils # (1.3-7.7) k/uL Lymphocytes # (1.0-4.8) k/uL ABG pCO2 (35-45) mmHg ABG pO2 (83-108) mmHg ABG HCO3 (21-25) mmol/L ABG Total CO2 (19-24) mmol/L ABG O2 Saturation (94-97) % Potassium (3.5-5.1) mmol/L BUN (7-17) mg/dL Glucose (74-99) mg/dL POC Glucose (mg/dL) 138 H 115 H (70-110) mg/dL Calcium (8.4-10.2) mg/dL Assessment and Plan Assessment: ASSESSMENT AND PLAN: _Acute respiratory failure: Secondary to advanced COPD with severe hypoxia and pulmonary acidosis, patient was started on p.o. updraft and steroid at this point. pulmonary team on the case. Patient currently intubated and on mechanical ventilation. Patient got extubated on 12/06 _COPD exacerbation: Will require probably oxygen continue updraft treatment and start steroid for now. Continue with IV Solu-Medrol _Mild diastolic congestive heart failure referral for an echocardiogram will be done patient would benefit from more oxygen, back on blood pressure medication with metoprolol, amlodipine and valsartan will add smaller dose of diuretics at this point. _Severe bronchitis: P patient continued currently on ceftriaxone and Zithromax. Also was started on small dose of Levophed _Secondary polycythemia: Most likely secondary to COPD and pulmonary hypertension continue to watch blood counts specially with mild hydration to make sure hemoglobin is again to climb higher than what it is otherwise might require phlebotomy. _Hypertension: Remain on valsartan 320, amlodipine 5 and metoprolol succinate 100 mg daily. _Hypothyroidism: Will continue levothyroxine 75 mcg daily. _GI prophylaxis: Patient be discharged on Pepcid 20 mg daily. _DVT prophylaxis: Lovenox 40 mg subcutaneous to be done. CODE STATUS: Full code. Admit patient to the inpatient service for more than 2 night stay.
--- NOTE | 2023-12-07 14:04 | P.PN ---
Subjective Progress Note Date: 12/07/23 Patient is a 73-year-old female with past medical history significant for COPD. Patient was admitted with COPD exacerbation as a 3 S. overflow in the emergency department. I received a call on this patient late last night. Apparently, the patient had been unresponsive while in the ER, and placed on BiPAP by the ER provider. I do not believe the communications project lead was called. After 40 minutes, a follow-up blood gas indicated worsening severe hypercapnic respiratory failure. PaO2 of 61, pCO2 greater than 98, pH of 7.18. She was on BiPAP 12/6 and FiO2 of 40%. Pulling tidal volumes of less than 100. Patient now comatose, unable to protect airway. She was emergently intubated by the [employer] OPERATOR. Postoperative chest x-ray showing the endotracheal tube approximately 5 cm above the srinivasan. [place] stric tube courses into the stomach. No obvious acute cardiopulmonary process. Hyperinflation consistent with COPD. I am evaluating this patient in trauma bay 1. She is intubated. Current ventilator settings include AC, a respiratory rate of 24, tidal volume of 350, FiO2 of 100%, PEEP of 5. The respiratory therapist obtained a repeat ABG showing improvement in the patient's acid-base balance, PaO2 297, pCO2 61, pH of 7.33. FiO2 was dropped to 60%. Patient is sedated on propofol at 50 mcg/kg/min.. Synchronous mechanical ventilator. Peak pressures are elevated at 33; static airway pressure 16, and indicating increased airway resistance. No significant airway secretions. Lung sounds are markedly diminished throughout. Blood pressure is a little hypotensive at the moment. We will give a 1 L fluid bolus. CBC: WBC count 8.1, hemoglobin 18, hematocrit 57.7, platelets 173. CMP: Sodium 139, potassium 5, chloride 99, serum bicarb 34, BUN 27, creatinine 0.68, glucose 101. Lactic 1.4. Troponin less than 0.012. NT proBNP 3490. D-dimer was elevated at 1.34. A CT angio protocol was done. No evidence of pulmonary embolism. Small left pleural effusion with associated atelectasis. Moderate centrilobular emphysematous changes. No obvious focal consolidations. Some nonspecific mildly enlarged mediastinal lymphadenopathy. Patient on empiric antibiotics in the form azithrom ycin and Rocephin. Viral screen negative for influenza, RSV, COVID. Afebrile. Patient is going to be transferred to the intensive care unit when bed available. 12/07/2023, the patient remains intubated on mechanical ventilator. This morning, the patient is on propofol which is running at 40 mcg/kg/min. The patient is intubated by #7 orotracheal tube. The patient remains on assist- control mode of mechanical ventilation at rate of 14, tidal volume of 350, FiO2 40% with a PEEP of 5. Blood gas showed pH of 7.36 with a pCO2 of 49 and pO2 of 62. Chest x-ray findings remain essentially unchanged and there is no airspace disease or consolidation. The patient's BP is stable. The white cell count is 11 with a hemoglobin 14.4. Count of 123. BUN 38 with a creatinine of 0.8 and a sodium levels at 137 with a potassium level of 4.0 and a chloride is 107. Procalcitonin level is at 0.08. Remains on bronchodilators. Remains on IV Solu-Medrol. Remains on a combination of Rocephin and Zithromax. The patient has no significant respiratory secretions. Peak airway pressure is around 28. No significant auto PEEP Objective - Vital Signs Vital signs: Vital Signs Temp 98.1 F 12/07/23 08:00 Pulse 110 H 12/07/23 08:00 Resp 16 12/07/23 08:00 BP 89/54 12/07/23 08:00 Pulse Ox 97 12/07/23 08:00 FiO2 40 12/07/23 08:57 Intake & Output 12/06/23 12/07/23 12/07/23 18:59 06:59 18:59 Intake Total 660 1420.113 72.356 Output Total 230 314 40 Balance 430 1106.113 32.356 Weight 55.338 kg 62 kg Intake: IV 560 1350 50 0.9 60 350 50 Bolus 500 1000 Intake, IV Titration 100 70.113 22.356 Amount propofoL 1,000 mg In 100 70.113 22.356 Empty Bag 1 bag @ 15 MCG/ KG/MIN 4.98 mls/hr IV . Q20H5M [facility] Rx#:[id number] Output: Urine 230 314 40 Other: Voiding Method Indwelling Catheter Indwelling Catheter - Exam GENERAL EXAM: Sedated on propofol, unresponsive, synchronous with mechanical ventilator. HEAD: Normocephalic and atraumatic EYES: Normal reaction of pupils, equal size. NOSE: Clear with pink turbinates. THROAT: No erythema or exudates. NECK: No masses, no JVD. CHEST: No chest wall deformity. LUNGS: Equal air entry with markedly diminished lung sounds throughout. No crackles, wheezes, rhonchi, focal dullness. Intubated to the mechanical ventilator and synchronous with set rate. Increased airway resistance. No significant endotracheal secretions. CVS: S1 and S2 normal with no audible murmur, regular rhythm. No extra heart sounds ABDOMEN: No hepatosplenomegaly, active bowel sounds, no guarding or rigidity. SPINE: No scoliosis or deformity SKIN: No rashes CENTRAL NERVOUS SYSTEM: Sedated and only withdraws to painful stimuli in all 4 extremities. EXTREMITIES: There is no peripheral edema, clubbing, or cyanosis. Peripheral pulses are intact. - Labs CBC & Chem 7: 12/07/23 02:32 12/07/23 07:46 Labs: Abnormal Lab Results - Last 24 Hours (Table) 12/06/23 12/06/23 12/07/23 Range/Units 16:52 20:31 02:32 WBC 11.0 H (3.8-10.6) k/uL Plt Count 123 L (150-450) k/uL Neutrophils # 10.2 H (1.3-7.7) k/uL Lymphocytes # 0.1 L (1.0-4.8) k/uL ABG pCO2 (35-45) mmHg ABG pO2 (83-108) mmHg ABG HCO3 (21-25) mmol/L ABG Total CO2 (19-24) mmol/L ABG O2 Saturation (94-97) % Potassium (3.5-5.1) mmol/L BUN (7-17) mg/dL Glucose (74-99) mg/dL POC Glucose (mg/dL) 118 H 126 H (70-110) mg/dL Calcium (8.4-10.2) mg/dL 12/07/23 12/07/23 12/07/23 Range/Units 02:32 03:00 06:03 WBC (3.8-10.6) k/uL Plt Count (150-450) k/uL Neutrophils # (1.3-7.7) k/uL Lymphocytes # (1.0-4.8) k/uL ABG pCO2 49 H (35-45) mmHg ABG pO2 62 L (83-108) mmHg ABG HCO3 28 H (21-25) mmol/L ABG Total CO2 30 H (19-24) mmol/L ABG O2 Saturation 92.9 L (94-97) % Potassium 3.2 L (3.5-5.1) mmol/L BUN 38 H (7-17) mg/dL Glucose 155 H (74-99) mg/dL POC Glucose (mg/dL) 132 H (70-110) mg/dL Calcium 7.8 L (8.4-10.2) mg/dL 12/07/23 Range/Units 06:27 WBC (3.8-10.6) k/uL Plt Count (150-450) k/uL Neutrophils # (1.3-7.7) k/uL Lymphocytes # (1.0-4.8) k/uL ABG pCO2 (35-45) mmHg ABG pO2 (83-108) mmHg ABG HCO3 (21-25) mmol/L ABG Total CO2 (19-24) mmol/L ABG O2 Saturation (94-97) % Potassium (3.5-5.1) mmol/L BUN (7-17) mg/dL Glucose (74-99) mg/dL POC Glucose (mg/dL) 138 H (70-110) mg/dL Calcium (8.4-10.2) mg/dL Assessment and Plan Assessment: Acute hypoxemic and hypercapnic respiratory failure, secondary to acute COPD exacerbation, requiring rapid sequence intubation in the emergency department. No evidence of any pneumonia. The patient is less bronchospastic and wheezy compared to yesterday. Blood gas improved and there is improvement in the overall acid-base status. The patient remains on bronchodilators, steroids and broad-spectrum antibiotics. Hypercapnic encephalopathy, status post intubation mechanical ventilation Chronic obstructive pulmonary disease with secondary exacerbation acute hypoxic/hypercapnic respiratory failure Polycythemia, improving History of hypertension History of hypothyroidism Plan: Overall condition is stable and we will going to give the patient sedation holiday and check weaning parameters Start combination of bronchodilators [id number], formoterol and budesonide inhalations, and IV Solu-Medrol Empirically covered on a combination of Rocephin and azithromycin Check procalcitonin level was low Chest CT angio unremarkable for pulmonary embolism, trace left pleural effusion Viral panel negative for influenza, RSV, COVID Echocardiogram is essentially within normal limits CT angiogram was negative for pulmonary embolism and there was only emphysema and small left-sided pleural effusion. Will be very difficult for this patient to undergo a spontaneous breathing trial. If the weaning parameters are adequate post sedation holiday, I may consider extubating this patient to a BiPAP. Condition is still critical. Will continue to follow-up in the intensive care unit. This evaluation was done more than 30 minutes. Time with Patient: Greater than 30
[2023-12-07] MEDS: IPRATROPIUM-ALBUTEROL 3 ML NEB INHALATION SCH (15:08)
[2023-12-07 17:56] LABS: Glucose,Whole Blood 119 mg/dL (70-110)
[2023-12-07 22:06] LABS: Glucose,Whole Blood 109 mg/dL (70-110)
[2023-12-08 06:37] LABS: African American GFR (CKD) >90 (>60 ml/min/1.73 sqM); Anion Gap -1 mmol/L; Blood Urea Nitrogen 37 mg/dL (7-17); Calcium 8.7 mg/dL (8.4-10.2); Carbon Dioxide 31 mmol/L (22-30); Chloride 110 mmol/L (98-107); Glucose 122 mg/dL (74-99); Non-African American GFR(CKD) 85 (>60 ml/min/1.73 sqM); Potassium 4.9 mmol/L (3.5-5.1); Sodium 140 mmol/L (137-145)
[2023-12-08 06:38] LABS: HCT 48.3 % (34.0-46.0); HGB 15.1 gm/dL (11.4-16.0); Hypochromasia Moderate; MCH 31.6 pg (25.0-35.0); MCHC 31.3 g/dL (31.0-37.0); MCV 100.7 fL (80.0-100.0); Macrocytosis Slight; Mean Platelet Volume 9.8; Platelet Count 122 k/uL (150-450); RBC 4.79 m/uL (3.80-5.40); RDW 14.4 % (11.5-15.5); WBC 20.8 k/uL (3.8-10.6)
[2023-12-08 06:41] LABS: Glucose,Whole Blood 112 mg/dL (70-110)
--- NOTE | 2023-12-08 06:44 | XR ---
EXAMINATION TYPE: XR chest 1V portable DATE OF EXAM: 12/08/2023 COMPARISON: 12/07/2023 HISTORY: Tube placement TECHNIQUE: Single frontal view of the chest is obtained. FINDINGS: There is been interval removal of the NG tube and ET tube. There is no pneumothorax. There is blunting of the left costophrenic angle consistent with a small effusion or infiltrate. Pulm onary vasculature is not congested and the heart is not enlarged. IMPRESSION: 1. Removal of ET tube and NG tube. 2. New Small focal opacity in the left costophrenic angle [facility], , 12/08/2023 6:42 AM
[2023-12-08 11:21] LABS: Glucose,Whole Blood 110 mg/dL (70-110)
--- NOTE | 2023-12-08 12:53 | P.PN ---
Subjective Progress Note Date: 12/08/23 Patient is a 73-year-old female with past medical history significant for COPD. Patient was admitted with COPD exacerbation as a 3 S. overflow in the emergency department. I received a call on this patient late last night. Apparently, the patient had been unresponsive while in the ER, and placed on BiPAP by the ER provider. I do not believe the transit planner was called. After 40 minutes, a follow-up blood gas indicated worsening severe hypercapnic respiratory failure. PaO2 of 61, pCO2 greater than 98, pH of 7.18. She was on BiPAP 12/6 and FiO2 of 40%. Pulling tidal volumes of less than 100. Patient now comatose, unable to protect airway. She was emergently intubated by the CLERICAL METHODS ANALYST. Postoperative chest x-ray showing the endotracheal tube approximately 5 cm above the srinivasan. [place] stric tube courses into the stomach. No obvious acute cardiopulmonary process. Hyperinflation consistent with COPD. I am evaluating this patient in trauma bay 1. She is intubated. Current ventilator settings include AC, a respiratory rate of 24, tidal volume of 350, FiO2 of 100%, PEEP of 5. The respiratory therapist obtained a repeat ABG showing improvement in the patient's acid-base balance, PaO2 297, pCO2 61, pH of 7.33. FiO2 was dropped to 60%. Patient is sedated on propofol at 50 mcg/kg/min.. Synchronous mechanical ventilator. Peak pressures are elevated at 33; static airway pressure 16, and indicating increased airway resistance. No significant airway secretions. Lung sounds are markedly diminished throughout. Blood pressure is a little hypotensive at the moment. We will give a 1 L fluid bolus. CBC: WBC count 8.1, hemoglobin 18, hematocrit 57.7, platelets 173. CMP: Sodium 139, potassium 5, chloride 99, serum bicarb 34, BUN 27, creatinine 0.68, glucose 101. Lactic 1.4. Troponin less than 0.012. NT proBNP 3490. D-dimer was elevated at 1.34. A CT angio protocol was done. No evidence of pulmonary embolism. Small left pleural effusion with associated atelectasis. Moderate centrilobular emphysematous changes. No obvious focal consolidations. Some nonspecific mildly enlarged mediastinal lymphadenopathy. Patient on empiric antibiotics in the form azithrom ycin and Rocephin. Viral screen negative for influenza, RSV, COVID. Afebrile. Patient is going to be transferred to the intensive care unit when bed available. 12/07/2023, the patient remains intubated on mechanical ventilator. This morning, the patient is on propofol which is running at 40 mcg/kg/min. The patient is intubated by #7 orotracheal tube. The patient remains on assist- control mode of mechanical ventilation at rate of 14, tidal volume of 350, FiO2 40% with a PEEP of 5. Blood gas showed pH of 7.36 with a pCO2 of 49 and pO2 of 62. Chest x-ray findings remain essentially unchanged and there is no airspace disease or consolidation. The patient's BP is stable. The white cell count is 11 with a hemoglobin 14.4. Count of 123. BUN 38 with a creatinine of 0.8 and a sodium levels at 137 with a potassium level of 4.0 and a chloride is 107. Procalcitonin level is at 0.08. Remains on bronchodilators. Remains on IV Solu-Medrol. Remains on a combination of Rocephin and Zithromax. The patient has no significant respiratory secretions. Peak airway pressure is around 28. No significant auto PEEP 12/08/2023, patient is being seen for a follow-up. The patient was weaned off the mechanical ventilator and the patient was extubated yesterday without any major difficulties. This morning, she is sitting up in a chair and she is currently on 3 days of oxygen by nasal cannula with a pulse ox of 98%. The chest x-ray from today was repeated and the ET tube has been removed. There is a new small focal opacity in the left costophrenic angle. Otherwise, no other airspace disease. The patient's white cell count is currently at 20 with a below 15.8 and a platelet count of 122. Sodium is at 140, bicarb is at 31, BUN 37 with a creatinine of 0.7. Procalcitonin level is at 0.08. The patient is communicating. Denies having any chest pain. She has recovered from acute hypoxic/hypercapnic respiratory failure due to COPD exacerbation. Objective - Vital Signs Vital signs: Vital Signs Temp 97.9 F 12/08/23 04:00 Pulse 64 12/08/23 07:00 Resp 16 12/08/23 07:00 BP 106/62 12/08/23 07:00 Pulse Ox 96 10/20/24 08:56 FiO2 30 12/08/23 08:54 Intake & Output 12/07/23 12/08/23 12/08/23 18:59 06:59 18:59 Intake Total 617.400 500 Output Total 475 430 0 Balance 142.400 70 0 Weight 58.8 kg Intake: IV 150 20 0.9 150 20 Intake, IV Titration 467.400 Amount Azithromycin 500 mg In 250 Sodium Chloride 0.9% 250 ml @ 250 mls/hr IVPB DAILY [facility] Rx#:[id number] Sodium Chloride 0.9% 1, 100 000 ml @ 999 mls/hr IV . Q1H1M [facility] Rx#:[id number] cefTRIAXone 1 gm In 50 Sodium Chloride 0.9% 50 ml @ 100 mls/hr IVPB Q24HR [facility] Rx#:[id number] propofoL 1,000 mg In 67.400 Empty Bag 1 bag @ 15 MCG/ KG/MIN 4.98 mls/hr IV . Q20H5M [facility] Rx#:[id number] Oral 480 Output: Urine 475 430 0 Other: Voiding Method Indwelling Catheter Indwelling Catheter - Exam GENERAL EXAM: Awake and alert on 3 L of oxygen by nasal cannula HEAD: Normocephalic and atraumatic EYES: Normal reaction of pupils, equal size. NOSE: Clear with pink turbinates. THROAT: No erythema or exudates. NECK: No masses, no JVD. CHEST: No chest wall deformity. LUNGS: Equal air entry with markedly diminished lung sounds throughout. No crackles, wheezes, rhonchi, focal dullness. Breath sounds are markedly diminished still. CVS: S1 and S2 normal with no audible murmur, regular rhythm. No extra heart sounds ABDOMEN: No hepatosplenomegaly, active bowel sounds, no guarding or rigidity. SPINE: No scoliosis or deformity SKIN: No rashes CENTRAL NERVOUS SYSTEM: Sedated and only withdraws to painful stimuli in all 4 extremities. EXTREMITIES: There is no peripheral edema, clubbing, or cyanosis. Peripheral pulses are intact. - Labs CBC & Chem 7: 12/08/23 06:02 12/08/23 06:02 Labs: Abnormal Lab Results - Last 24 Hours (Table) 12/07/23 12/07/23 12/08/23 Range/Units 12:14 17:54 06:02 WBC 20.8 H (3.8-10.6) k/uL Hct 48.3 H (34.0-46.0) % MCV 100.7 H (80.0-100.0) fL Plt Count 122 L (150-450) k/uL Chloride (98-107) mmol/L Carbon Dioxide (22-30) mmol/L BUN (7-17) mg/dL Glucose (74-99) mg/dL POC Glucose (mg/dL) 115 H 119 H (70-110) mg/dL 12/08/23 12/08/23 Range/Units 06:02 06:39 WBC (3.8-10.6) k/uL Hct (34.0-46.0) % MCV (80.0-100.0) fL Plt Count (150-450) k/uL Chloride 110 H (98-107) mmol/L Carbon Dioxide 31 H (22-30) mmol/L BUN 37 H (7-17) mg/dL Glucose 122 H (74-99) mg/dL POC Glucose (mg/dL) 112 H (70-110) mg/dL Microbiology - Last 24 Hours (Table) 12/06/23 16:17 Gram Stain - Preliminary Sputum Assessment and Plan Assessment: Acute hypoxemic and hypercapnic respiratory failure, secondary to acute COPD exacerbation, requiring rapid sequence intubation in the emergency department. The patient is extubated on 12/07/2023. Currently on 3 Suboxone by nasal cannula Hypercapnic encephalopathy, status post intubation mechanical ventilation, recovered Chronic obstructive pulmonary disease Polycythemia, improving History of hypertension History of hypothyroidism Plan: Stable on 3 L of oxygen by nasal cannula Monitor white cell count Procalcitonin level is not elevated Start combination of bronchodilators [id number], Continue formoterol and budesonide inhalations Continue IV Solu-Medrol Empirically covered on a combination of Rocephin and azithromycin Chest CT angio unremarkable for pulmonary embolism, trace left pleural effusion Viral panel negative for influenza, RSV, COVID Echocardiogram is essentially within normal limits CT angiogram was negative for pulmonary embolism and there was only emphysema and small left-sided pleural effusion. The patient will be transferred to telemetry unit
--- NOTE | 2023-12-08 15:36 | P.PN ---
Subjective 73-year-old with active medical history of COPD, GERD, hypertension, hyperlipidemia, chronic lower back pain and osteoarthritis who has been seen in our office for the last Few years has not been hospitalized anytime recent. Who presented to the emergency department today complaining of worsening symptoms for last 2 weeks apparently has been taking combined albuterol/ipratropium and DuoNeb nebulizer for the last week and her symptoms become much worse. Patient was seen earlier in the office her oxygenation was quite bit low recommended to be on O2 at home she refused but she agreed to give nebulizer treatment management because her regular rescue inhaler is not working anymore. The claim that since she started her nebulizer treatment that she has not felt good she denies any fever or chills she had mild cough and quite wheezing palpitation and mild exertional symptoms. Also has been having slight headache with generalized weakness she is following sleep easily as well. She was seen and evaluated her laboratory value shows normal CBC but hemoglobin 18.0 hematocrit 57.7 with significant polycythemia secondary to COPD. ABG showed pCO2 of 76 with pO2 of 34 pH of 7.28 and saturation of only 56. Electrolyte and chemistry shows creatinine of 0.68 with GFR of 86 blood sugar was normal normal liver function test total protein was 8.7 with BNP of 3490 lactic acid was slightly elevated As she was on oxygen and treated had improved significantly. Chest x-ray shows cardiomegaly with pulmonary vascular congestion and small left pleural effusion correlate with congestive heart failure and COPD. She had slightly elevated D-dimer and that doing CTA findings with no evidence of pulmonary embolism small left-sided pleural effusion with association of atelectasis, moderate COPD nonspecific mildly enlarged mediastinal lymph node and partially visualization of the infrarenal abdominal aortic aneurysm size 3.2 cm. With the current symptoms patient was started on DuoNeb, Pulmicort, Solu-Medrol, antibiotics with Augmentin was started patient was hospitalized will be seen pulmonary echocardiogram was ordered she will be on diuretics beside updraft antibiotic Solu-Medrol. 12/05 Patient currently remains in ER hold pending ICU bed availability. She is intubated and on mechanical ventilation. Afebrile, tachypneic with heart rate about 77 and breathing rate 20-24. Labs reviewed, hemoglobin is 18. D-dimer was elevated at 1.34 pH was low but improving 7.1 up to 7.3, pCO2 is also improving 76 down to 71 CTA of the chest was negative for acute PE but showing COPD with enlarged mediastinal lymphadenopathy Currently she is covered with IV Solu-Medrol 60 mg and antibiotic Zithromax and ceftriaxone 01/06 Patient got extubated today and she is on ventilation mask She denies chest pain Mentation at baseline but she looks tired Patient tachycardic and tachypneic Also today started on Levophed. And he is continued on antibiotic Zithromax and ceftriaxone 12/07 Patient improving breathing significantly Currently she is on 3 L of oxygen She remains on IV Solu-Medrol and ceftriaxone Patient currently out of the ICU in the select unit and is doing well. BiPAP machine at bedside Objective - Vital Signs Vital signs: Vital Signs Temp 98.1 F 12/08/23 11:16 Pulse 74 12/08/23 12:31 Resp 18 12/08/23 12:31 BP 107/58 12/08/23 11:16 Pulse Ox 98 12/08/23 11:16 FiO2 30 12/08/23 08:54 Intake & Output 12/07/23 12/08/23 12/08/23 18:59 06:59 18:59 Intake Total 617.400 500 70 Output Total 475 430 0 Balance 142.400 70 70 Weight 58.8 kg Intake: IV 150 20 50 0.9 150 20 50 Intake, IV Titration 467.400 20 Amount Azithromycin 500 mg In 250 Sodium Chloride 0.9% 250 ml @ 250 mls/hr IVPB DAILY [facility] Rx#:[id number] Norepinephrine 4 mg In 20 Sodium Chloride 0.9% 250 ml @ 0.03 MCG/KG/MIN 6. 325 mls/hr IV .Q24H [facility] Rx#:[id number] Sodium Chloride 0.9% 1, 100 000 ml @ 999 mls/hr IV . Q1H1M [facility] Rx#:[id number] cefTRIAXone 1 gm In 50 Sodium Chloride 0.9% 50 ml @ 100 mls/hr IVPB Q24HR [facility] Rx#:[id number] propofoL 1,000 mg In 67.400 Empty Bag 1 bag @ 15 MCG/ KG/MIN 4.98 mls/hr IV . Q20H5M [facility] Rx#:[id number] Oral 480 Output: Urine 475 430 0 Other: Voiding Method Indwelling Catheter Indwelling Catheter Indwelling Catheter # Voids 1 # Bowel Movements 1 - Exam -GENERAL: The patient is sedated and intubated HEENT: Pupils are round and equally reacting to light. EOMI. No scleral icterus. No conjunctival pallor. Normocephalic, atraumatic. No pharyngeal erythema. No thyromegaly. CARDIOVASCULAR: S1 and S2 present. No murmurs, rubs, or gallops. -PULMONARY: Bilateral limited air entry on both sides, no wheezing , no crackles. ABDOMEN: Soft, nontender, nondistended, normoactive bowel sounds. No palpable organomegaly. MUSCULOSKELETAL: No joint swelling or deformity. EXTREMITIES: No cyanosis, clubbing, or pedal edema. NEUROLOGICAL: Gross neurological examination did not reveal any focal deficits. SKIN: No rashes. no petechiae. - Labs CBC & Chem 7: 12/08/23 06:02 12/08/23 06:02 Labs: Abnormal Lab Results - Last 24 Hours (Table) 12/07/23 12/08/23 12/08/23 Range/Units 17:54 06:02 06:02 WBC 20.8 H (3.8-10.6) k/uL Hct 48.3 H (34.0-46.0) % MCV 100.7 H (80.0-100.0) fL Plt Count 122 L (150-450) k/uL Chloride 110 H (98-107) mmol/L Carbon Dioxide 31 H (22-30) mmol/L BUN 37 H (7-17) mg/dL Glucose 122 H (74-99) mg/dL POC Glucose (mg/dL) 119 H (70-110) mg/dL 12/08/23 Range/Units 06:39 WBC (3.8-10.6) k/uL Hct (34.0-46.0) % MCV (80.0-100.0) fL Plt Count (150-450) k/uL Chloride (98-107) mmol/L Carbon Dioxide (22-30) mmol/L BUN (7-17) mg/dL Glucose (74-99) mg/dL POC Glucose (mg/dL) 112 H (70-110) mg/dL Microbiology - Last 24 Hours (Table) 12/06/23 16:17 Gram Stain - Preliminary Sputum Assessment and Plan Assessment: ASSESSMENT AND PLAN: _Acute respiratory failure: Secondary to advanced COPD with severe hypoxia and pulmonary acidosis, patient was started on p.o. updraft and steroid at this point. pulmonary team on the case. Patient currently intubated and on mechanical ventilation. Patient got extubated on 12/06 _COPD exacerbation: Will require probably oxygen continue updraft treatment and start steroid for now. Continue with IV Solu-Medrol _Mild diastolic congestive heart failure referral for an echocardiogram will be done patient would benefit from more oxygen, back on blood pressure medication with metoprolol, amlodipine and valsartan will add smaller dose of diuretics at this point. _Severe bronchitis: P patient continued currently on ceftriaxone and Zithromax. Also was started on small dose of Levophed _Secondary polycythemia: Most likely secondary to COPD and pulmonary hypertension continue to watch blood counts specially with mild hydration to make sure hemoglobin is again to climb higher than what it is otherwise might require phlebotomy. _Hypertension: Remain on valsartan 320, amlodipine 5 and metoprolol succinate 100 mg daily. _Hypothyroidism: Will continue levothyroxine 75 mcg daily. _GI prophylaxis: Patient be discharged on Pepcid 20 mg daily. _DVT prophylaxis: Lovenox 40 mg subcutaneous to be done. CODE STATUS: Full code. Admit patient to the inpatient service for more than 2 night stay.
[2023-12-08 16:36] LABS: Glucose,Whole Blood 108 mg/dL (70-110)
[2023-12-08 20:20] LABS: Glucose,Whole Blood 132 mg/dL (70-110)
[2023-12-09 07:22] LABS: HCT 50.3 % (34.0-46.0); Hypochromasia Marked; MCH 30.7 pg (25.0-35.0); MCHC 29.7 g/dL (31.0-37.0); MCV 103.3 fL (80.0-100.0); Macrocytosis Slight; Mean Platelet Volume 9.4; Platelet Count 119 k/uL (150-450); RBC 4.87 m/uL (3.80-5.40); RDW 13.9 % (11.5-15.5); WBC 16.9 k/uL (3.8-10.6)
[2023-12-09 07:33] LABS: African American GFR (CKD) >90 (>60 ml/min/1.73 sqM); Anion Gap 2 mmol/L; Blood Urea Nitrogen 42 mg/dL (7-17); Calcium 8.7 mg/dL (8.4-10.2); Carbon Dioxide 35 mmol/L (22-30); Chloride 103 mmol/L (98-107); Glucose 133 mg/dL (74-99); Non-African American GFR(CKD) 85 (>60 ml/min/1.73 sqM); Potassium 5.1 mmol/L (3.5-5.1); Sodium 140 mmol/L (137-145)
--- NOTE | 2023-12-09 07:44 | XR ---
EXAMINATION TYPE: XR chest 2V DATE OF EXAM: 12/09/2023 COMPARISON: 12/08/2023 HISTORY: 73 year-old female COPD, post vent TECHNIQUE: PA and lateral views FINDINGS: Heart the limits of normal in size. Hyperinflation. There are trace bilateral pleural effusions, left greater than right. Upper and mid lungs appear clear. IMPRESSION: COPD with ongoing trace pleural effusions, left greater than right. [facility], , 12/09/2023 7:41 AM
[2023-12-09 12:06] LABS: Glucose,Whole Blood 134 mg/dL (70-110)
[2023-12-09 13:09] VITALS: BMI 22.4
--- NOTE | 2023-12-09 15:17 | P.PN ---
Subjective Progress Note Date: 12/09/23 Patient is a 73-year-old female with past medical history significant for COPD. Patient was admitted with COPD exacerbation as a 3 S. overflow in the emergency department. I received a call on this patient late last night. Apparently, the patient had been unresponsive while in the ER, and placed on BiPAP by the ER provider. I do not believe the gas appliance servicer was called. After 40 minutes, a follow-up blood gas indicated worsening severe hypercapnic respiratory failure. PaO2 of 61, pCO2 greater than 98, pH of 7.18. She was on BiPAP 12/6 and FiO2 of 40%. Pulling tidal volumes of less than 100. Patient now comatose, unable to protect airway. She was emergently intubated by the END USER SUPPORT SPECIALIST. Postoperative chest x-ray showing the endotracheal tube approximately 5 cm above the srinivasan. [place] tric tube courses into the stomach. No obvious acute cardiopulmonary process. Hyperinflation consistent with COPD. I am evaluating this patient in trauma bay 1. She is intubated. Current ventilator settings include AC, a respiratory rate of 24, tidal volume of 350, FiO2 of 100%, PEEP of 5. The respiratory therapist obtained a repeat ABG showing improvement in the patient's acid-base balance, PaO2 297, pCO2 61, pH of 7.33. FiO2 was dropped to 60%. Patient is sedated on propofol at 50 mcg/kg/min.. Synchronous mechanical ventilator. Peak pressures are elevated at 33; static airway pressure 16, and indicating increased airway resistance. No significant airway secretions. Lung sounds are markedly diminished throughout. Blood pressure is a little hypotensive at the moment. We will give a 1 L fluid bolus. CBC: WBC count 8.1, hemoglobin 18, hematocrit 57.7, platelets 173. CMP: Sodium 139, potassium 5, chloride 99, serum bicarb 34, BUN 27, creatinine 0.68, glucose 101. Lactic 1.4. Troponin less than 0.012. NT proBNP 3490. D-dimer was elevated at 1.34. A CT angio protocol was done. No evidence of pulmonary embolism. Small left pleural effusion with associated atelectasis. Moderate centrilobular emphysematous changes. No obvious focal consolidations. Some nonspecific mildly enlarged mediastinal lymphadenopathy. Patient on empiric antibiotics in the form azithromycin and Rocephin. Viral screen negative for influenza, RSV, COVID. Afebrile. Patient is going to be transferred to the intensive care unit when bed available. 12/07/2023, the patient remains intubated on mechanical ventilator. This morning, the patient is on propofol which is running at 40 mcg/kg/min. The patient is intubated by #7 orotracheal tube. The patient remains on assist- control mode of mechanical ventilation at rate of 14, tidal volume of 350, FiO2 40% with a PEEP of 5. Blood gas showed pH of 7.36 with a pCO2 of 49 and pO2 of 62. Chest x-ray findings remain essentially unchanged and there is no airspace disease or consolidation. The patient's BP is stable. The white cell count is 11 with a hemoglobin 14.4. Count of 123. BUN 38 with a creatinine of 0.8 and a sodium levels at 137 with a potassium level of 4.0 and a chloride is 107. Procalcitonin level is at 0.08. Remains on bronchodilators. Remains on IV Solu-Medrol. Remains on a combination of Rocephin and Zithromax. The patient has no significant respiratory secretions. Peak airway pressure is around 28. No significant auto PEEP 12/08/2023, patient is being seen for a follow-up. The patient was weaned off the mechanical ventilator and the patient was extubated yesterday without any major difficulties. This morning, she is sitting up in a chair and she is currently on 3 days of oxygen by nasal cannula with a pulse ox of 98%. The chest x-ray from today was repeated and the ET tube has been removed. There is a new small focal opacity in the left costophrenic angle. Otherwise, no other airspace disease. The patient's white cell count is currently at 20 with a below 15.8 and a platelet count of 122. Sodium is at 140, bicarb is at 31, BUN 37 with a creatinine of 0.7. Procalcitonin level is at 0.08. The patient is communicating. Denies having any chest pain. She has recovered from acute hypoxic/hypercapnic respiratory failure due to COPD exacerbation. The patient is seen today December 09, 2023 in follow-up on the selective care unit. She is currently sitting up in bed. Awake and alert in no acute distress. Maintaining good O2 saturations in the 90s on 2 L/min per nasal cannula. She has been afebrile. Hemodynamically stable. She is improving. She remains on DuoNeb inhalations, Pulmicort and Perforomist inhalations, Solu- Medrol. Chest x-ray reveals evidence of COPD with trace pleural effusions left greater than right. White count 16.9. Hemoglobin 15.0. Platelets 119. Sodium 140. Potassium 5.1. Bicarb 35. BUN 42. Creatinine 0.70. Procalcitonin was 0.08. Objective - Vital Signs Vital signs: Vital Signs Temp 97.8 F 12/09/23 11:36 Pulse 63 12/09/23 11:36 Resp 20 12/09/23 11:36 BP 106/63 12/09/23 11:36 Pulse Ox 94 L 12/09/23 11:36 FiO2 30 12/08/23 08:54 Intake & Output 12/08/23 12/09/23 12/09/23 18:59 06:59 18:59 Intake Total 70 520 Output Total 0 200 Balance 70 -200 520 Weight 59.2 kg 59.2 kg Intake: IV 50 0.9 50 Intake, IV Titration 20 Amount Norepinephrine 4 mg In 20 Sodium Chloride 0.9% 250 ml @ 0.03 MCG/KG/MIN 6. 325 mls/hr IV .Q24H [facility] Rx#:[id number] Oral 520 Output: Urine 0 200 Other: Voiding Method Indwelling Catheter Indwelling Catheter # Voids 1 1 # Bowel Movements 1 - Exam GENERAL EXAM: Alert, pleasant 73-year-old female, on 2 L nasal cannula, comfortable in no apparent distress. HEAD: Normocephalic. EYES: Normal reaction of pupils, equal size. NOSE: Clear with pink turbinates. THROAT: No erythema or exudates. NECK: No masses, no JVD. CHEST: No chest wall deformity. LUNGS: Equal air entry with faint crackles in the posterior bases. CVS: S1 and S2 normal with no audible murmur, regular rhythm. ABDOMEN: No hepatosplenomegaly, normal bowel sounds, no guarding or rigidity. SPINE: No scoliosis or deformity SKIN: No rashes CENTRAL NERVOUS SYSTEM: No focal deficits, tone is normal in all 4 extremities. EXTREMITIES: There is no peripheral edema. No clubbing, no cyanosis. Peripheral pulses are intact. - Labs CBC & Chem 7: 12/09/23 06:56 12/09/23 06:56 Labs: Abnormal Lab Results - Last 24 Hours (Table) 12/08/23 12/09/23 12/09/23 Range/Units 20:19 06:56 06:56 WBC 16.9 H (3.8-10.6) k/uL Hct 50.3 H (34.0-46.0) % MCV 103.3 H (80.0-100.0) fL MCHC 29.7 L (31.0-37.0) g/dL Plt Count 119 L (150-450) k/uL Carbon Dioxide 35 H (22-30) mmol/L BUN 42 H (7-17) mg/dL Glucose 133 H (74-99) mg/dL POC Glucose (mg/dL) 132 H (70-110) mg/dL 12/09/23 Range/Units 12:04 WBC (3.8-10.6) k/uL Hct (34.0-46.0) % MCV (80.0-100.0) fL MCHC (31.0-37.0) g/dL Plt Count (150-450) k/uL Carbon Dioxide (22-30) mmol/L BUN (7-17) mg/dL Glucose (74-99) mg/dL POC Glucose (mg/dL) 134 H (70-110) mg/dL Microbiology - Last 24 Hours (Table) 12/06/23 16:17 Gram Stain - Final Sputum Sputum Culture - Final Assessment and Plan Assessment: Acute hypoxemic and hypercapnic respiratory failure, secondary to acute COPD exacerbation, requiring rapid sequence intubation in the emergency department. The patient is extubated on 12/07/2023. Currently on 2 liters by nasal cannula Hypercapnic encephalopathy, status post intubation mechanical ventilation, recovered Chronic obstructive pulmonary disease Polycythemia, improving History of hypertension History of hypothyroidism Plan: The patient was seen and evaluated Chest x-ray, labs and medications reviewed Improving and on 2 L nasal cannula Titrate down the FiO2 as tolerated May need home oxygen Working with PT/OT Plan is home at discharge I have personally seen and examined the patient, performed the documentation and the assessment and plan as written. Number of minutes spent on the visit: 10 Dictation was produced using [email or web address] dictation software. Please excuse any grammatical, word or spelling errors.
[2023-12-09 16:47] LABS: Glucose,Whole Blood 120 mg/dL (70-110)
[2023-12-09 20:27] LABS: Glucose,Whole Blood 137 mg/dL (70-110)
--- NOTE | 2023-12-10 05:37 | P.PN ---
Subjective Progress Note Date: 12/09/23 HISTORY OF PRESENT ILLNESS: 73-year-old with active medical history of COPD, GERD, hypertension, hyperlipidemia, chronic lower back pain and osteoarthritis who has been seen in our office for the last Few years has not been hospitalized anytime recent. Who presented to the emergency department today complaining of worsening symptoms for last 2 weeks apparently has been taking combined albuterol/ipratropium and DuoNeb nebulizer for the last week and her symptoms become much worse. Patient was seen earlier in the office her oxygenation was quite bit low recommended to be on O2 at home she refused but she agreed to give nebulizer treatment management because her regular rescue inhaler is not working anymore. The claim that since she started her nebulizer treatment that she has not felt good she denies any fever or chills she had mild cough and quite wheezing palpitation and mild exertional symptoms. Also has been having slight headache with generalized weakness she is following sleep easily as well. She was seen and evaluated her laboratory value shows normal CBC but hemoglobin 18.0 hematocrit 57.7 with significant polycythemia secondary to COPD. ABG showed pCO2 of 76 with pO2 of 34 pH of 7.28 and saturation of only 56. Electrolyte and chemistry shows crea tinine of 0.68 with GFR of 86 blood sugar was normal normal liver function test total protein was 8.7 with BNP of 3490 lactic acid was slightly elevated As she was on oxygen and treated had improved significantly. Chest x-ray shows cardiomegaly with pulmonary vascular congestion and small left pleural effusion correlate with congestive heart failure and COPD. She had slightly elevated D- dimer and that doing CTA findings with no evidence of pulmonary embolism small left-sided pleural effusion with association of atelectasis, moderate COPD nonspecific mildly enlarged mediastinal lymph node and partially visualization of the infrarenal abdominal aortic aneurysm size 3.2 cm. With the current symptoms patient was started on DuoNeb, Pulmicort, Solu-Medrol, antibiotics with Augmentin was started patient was hospitalized will be seen pulmonary echocardiogram was ordered she will be on diuretics beside updraft antibiotic Solu-Medrol. 12/09/2023: She was admitted originally on 12/05/2023 for COPD exacerbation and worsening dyspnea with acute respiratory failure require mechanical ventilation initially, the patient has been off mechanical ventilation last 1 days and out of the ICU sitting in the chair this morning has been doing well pulse ox 98 percentile she is on 2 L of oxygen which she dropped down at nighttime might require BiPAP may be. White blood cells up to 20,000 most likely from steroid based her electrolyte with severe metabolic acidosis glucose still running slightly bit elevated. To resume home meds to keep pulse rate and blood pressure under control at this point. Microbiology is negative does not show any infection of any type, chest x-ray from yesterday showing a new small focal opacification of the left posterior pharyngeal angle only. Hopefully will titrate physical therapy today and then slowly build management. REVIEW OF SYSTEMS: CONSTITUTIONAL: Well-developed mild respiratory distress EYES: No icterus sclerae, no conjunctivitis. EARS, NOSE, MOUTH, THROAT, and FACE: No sore throat, lymphadenopathy, carotid bruits or deformity. RESPIRATORY: Positive shortness of breath cough and wheezes. CARDIOVASCULAR: Positive PND orthopnea palpitation. GASTROINTESTINAL: No Abd pain, Nausea or vomiting, no Diarrhea or constipation, No GI Bleed, no distention or masses. GENITOURINARY: Negative for Hematuria or UTI, no kidney stones. INTEGUMENT/BREAST: Negative for any muscular injury with mild osteoarthritis.. HEMATOLOGIC/LYMPHATIC: Negative for bleed or purpura. Positive polycythemia. MUSCULOSKELTAL: Generalized arthralgia and myalgia. NEURLOGICAL: No LOC, Sz or syncope, blurred vision dizziness or abnormality.. Mildly tiredness and drowsiness. BEHAVIORAL/PSYCH: Negative. ENDOCRINE: Negative. PHYSICAL EXAMINATION: General Appearance: Alert, cooperative, in mild respiratory distress. Neck HEENT: Supple, no lymphadenopathy, no thyroid enlargement, no carotid bruits. Lungs: Decreased breath sound bilaterally with fine rhonchi positive mild expiratory wheezes. Chest Wall: Decreased expansion with deep inspiration no tenderness and no deformity was found on exam, no costochondral pain or discomfort. Heart: Regular rhythm and rate, S1, S2 positive S3 positive PVCs Back: Symmetric, no curvature, ROM normal, no CVA tenderness. Abdomen: Soft, non-tender, bowel sounds active all four quadrants, no masses, no organomegaly. Extremities: Generalized arthralgia no edema. Pulses: 2+ and symmetric. Skin: Skin color, texture, tugor normal, no rashes or lesions. Neurologic: Alert oriented x3 cranial nerves II through XII intact generalized weakness calling sleep in the middle of her interview., no motor deficit, no abnormal balance or gait. ASSESSMENT AND PLAN: _Acute respiratory failure: Secondary to advanced COPD with severe hypoxia and pulmonary acidosis, patient was started on p.o. updraft and steroid at this point. She was on mechanical ventilation for 48 hours was extubated but has been doing much better last 24 hours was transferred to the floor on supplemental oxygen 2 L doing very well. _COPD exacerbation: She is off mechanical ventilation still on oxygen supplement required 2 L nasal cannula to keep her pulse ox above 90 percentile. _Mild diastolic congestive heart failure referral for an echocardiogram will be done patient would benefit from more oxygen, back on blood pressure medication with metoprolol, amlodipine and valsartan will add smaller dose of diuretics at this point. _Severe bronchitis: Was on Rocephin early was taking off medication doing very well, she is not on any antibiotics. _Secondary polycythemia: Most likely secondary to COPD and pulmonary hypertension continue to watch blood counts specially with mild hydration to make sure hemoglobin is again to climb higher than what it is otherwise might require phlebotomy. _Hypertension: Remain on valsartan 320, amlodipine 5 and metoprolol succinate 100 mg daily. Blood pressure seems to be well-controlled. _Hypothyroidism: Will continue levothyroxine 75 mcg daily. Discussion: Patient was extubated successfully doing very well she is on supplemental oxygen via nasal cannula at 2 L with oxygen running around 92 percentile she is working with PT OT and planning to go home refused to go to SNF she has more help around she is going to require to be on oxygen all the time social welfare administrator making arrangement for help at home she is going require visiting nurse as well as physical therapy. Advance activity today the patient is more stable by tomorrow hopefully can be discharged home tomorrow. Objective - Vital Signs Vital signs: Vital Signs Temp 98 F 12/09/23 03:48 Pulse 63 12/09/23 03:48 Resp 15 12/09/23 03:48 BP 110/62 12/09/23 03:48 Pulse Ox 96 12/09/23 03:48 FiO2 30 12/08/23 08:54 Intake & Output 12/08/23 12/08/23 12/09/23 06:59 18:59 06:59 Intake Total 500 70 Output Total 430 0 200 Balance 70 70 -200 Weight 58.8 kg Intake: IV 20 50 0.9 20 50 Intake, IV Titration 20 Amount Norepinephrine 4 mg In 20 Sodium Chloride 0.9% 250 ml @ 0.03 MCG/KG/MIN 6. 325 mls/hr IV .Q24H [facility] Rx#:[id number] Oral 480 Output: Urine 430 0 200 Other: Voiding Method Indwelling Catheter Indwelling Catheter Indwelling Catheter # Voids 1 # Bowel Movements 1 - Labs CBC & Chem 7: 12/09/23 06:56 12/09/23 06:56 Labs: Abnormal Lab Results - Last 24 Hours (Table) 12/08/23 12/08/23 12/08/23 Range/Units 06:02 06:02 06:39 WBC 20.8 H (3.8-10.6) k/uL Hct 48.3 H (34.0-46.0) % MCV 100.7 H (80.0-100.0) fL Plt Count 122 L (150-450) k/uL Chloride 110 H (98-107) mmol/L Carbon Dioxide 31 H (22-30) mmol/L BUN 37 H (7-17) mg/dL Glucose 122 H (74-99) mg/dL POC Glucose (mg/dL) 112 H (70-110) mg/dL 12/08/23 Range/Units 20:19 WBC (3.8-10.6) k/uL Hct (34.0-46.0) % MCV (80.0-100.0) fL Plt Count (150-450) k/uL Chloride (98-107) mmol/L Carbon Dioxide (22-30) mmol/L BUN (7-17) mg/dL Glucose (74-99) mg/dL POC Glucose (mg/dL) 132 H (70-110) mg/dL Microbiology - Last 24 Hours (Table) 12/06/23 16:17 Gram Stain - Preliminary Sputum Sputum Culture - Preliminary
[2023-12-10 06:01] LABS: Glucose,Whole Blood 118 mg/dL (70-110)
--- NOTE | 2023-12-10 08:05 | P.DS ---
Providers Date of admission: 12/05/23 15:20 Attending physician: Jared Lynn Consults: 12/05/23 15:20 Consult Physician Urgent Consulting Provider: Kavita Pagan Consult Reason/Comments: COPD exacerbation Do you want consulting provider notified?: Yes Primary care physician: Jared Lynn [facility] Course: HISTORY OF PRESENT ILLNESS: 73-year-old with active medical history of COPD, GERD, hypertension, hyperlipidemia, chronic lower back pain and osteoarthritis who has been seen in our office for the last Few years has not been hospitalized anytime recent. Who presented to the emergency department today complaining of worsening symptoms for last 2 weeks apparently has been taking combined albuterol/ipratropium and DuoNeb nebulizer for the last week and her symptoms become much worse. Patient was seen earlier in the office her oxygenation was quite bit low recommended to be on O2 at home she refused but she agreed to give nebulizer treatment management because her regular rescue inhaler is not working anymore. The claim that since she started her nebulizer treatment that she has not felt good she denies any fever or chills she had mild cough and quite wheezing palpitation and mild exertional symptoms. Also has been having slight headache with generalized weakness she is following sleep easily as well. She was seen and evaluated her laboratory value shows normal CBC but hemoglobin 18.0 hematocrit 57.7 with significant polycythemia secondary to COPD. ABG showed pCO2 of 76 with pO2 of 34 pH of 7.28 and saturation of only 56. Electrolyte and chemistry shows creatinine of 0.68 with GFR of 86 blood sugar was normal normal liver function test total protein was 8.7 with BNP of 3490 lactic acid was slightly elevated As she was on oxygen and treated had improved significantly. Chest x-ray shows cardiomegaly with pulmonary vascular congestion and small left pleural effusion correlate with congestive heart failure and COPD. She had slightly elevated D- dimer and that doing CTA findings with no evidence of pulmonary embolism small left-sided pleural effusion with association of atelectasis, moderate COPD nonspecific mildly enlarged mediastinal lymph node and partially visualization of the infrarenal abdominal aortic aneurysm size 3.2 cm. With the current symptoms patient was started on DuoNeb, Pulmicort, Solu-Medrol, antibiotics with Augmentin was started patient was hospitalized will be seen pulmonary echocardiogram was ordered she will be on diuretics beside updraft antibiotic Solu-Medrol. 12/09/2023: She was admitted originally on 12/05/2023 for COPD exacerbation and worsening dyspnea with acute respiratory failure require mechanical ventilation initially, the patient has been off mechanical ventilation last 1 days and out of the ICU sitting in the chair this morning has been doing well pulse ox 98 percentile she is on 2 L of oxygen which she dropped down at nighttime might require BiPAP may be. White blood cells up to 20,000 most likely from steroid based her electrolyte with severe metabolic acidosis glucose still running slightly bit elevated. To resume home meds to keep pulse rate and blood pres sure under control at this point. Microbiology is negative does not show any infection of any type, chest x-ray from yesterday showing a new small focal opacification of the left posterior pharyngeal angle only. Hopefully will titrate physical therapy today and then slowly build management. 12/09/2020: She is doing very well lab from yesterday continues show slight elevated white blood cell secondary to steroid mostly, her polycythemia has improved to some degree, anion gap still at 2 with bun 42 creatinine 0.7 with GFR above 85 blood sugar still running in the low 100 stable. Last chest x-ray done from yesterday showing signs and symptoms of COPD but mostly mild bronchitis flattening diaphragmatic minimal pleural fluid and no sign of large infiltrate or mass was found. She is doing slightly better with physical therapy with absolutely refused to go anywhere but home with home health if possible arrangement for oxygen will be made with the help of her family on visiting nurse she will be able to be discharged. REVIEW OF SYSTEMS: CONSTITUTIONAL: Well-developed mild respiratory distress EYES: No icterus sclerae, no conjunctivitis. EARS, NOSE, MOUTH, THROAT, and FACE: No sore throat, lymphadenopathy, carotid bruits or deformity. RESPIRATORY: Positive shortness of breath cough and wheezes. CARDIOVASCULAR: Positive PND orthopnea palpitation. GASTROINTESTINAL: No Abd pain, Nausea or vomiting, no Diarrhea or constipation, No GI Bleed, no distention or masses. GENITOURINARY: Negative for Hematuria or UTI, no kidney stones. INTEGUMENT/BREAST: Negative for any muscular injury with mild osteoarthritis.. HEMATOLOGIC/LYMPHATIC: Negative for bleed or purpura. Positive polycythemia. MUSCULOSKELTAL: Generalized arthralgia and myalgia. NEURLOGICAL: No LOC, Sz or syncope, blurred vision dizziness or abnormality.. Mildly tiredness and drowsiness. BEHAVIORAL/PSYCH: Negative. ENDOCRINE: Negative. PHYSICAL EXAMINATION: General Appearance: Alert, cooperative, in mild respiratory distress. Neck HEENT: Supple, no lymphadenopathy, no thyroid enlargement, no carotid bruits. Lungs: Decreased breath sound bilaterally with fine rhonchi positive mild expiratory wheezes. Chest Wall: Decreased expansion with deep inspiration no tenderness and no deformity was found on exam, no costochondral pain or discomfort. Heart: Regular rhythm and rate, S1, S2 positive S3 positive PVCs Back: Symmetric, no curvature, ROM normal, no CVA tenderness. Abdomen: Soft, non-tender, bowel sounds active all four quadrants, no masses, no organomegaly. Extremities: Generalized arthralgia no edema. Pulses: 2+ and symmetric. Skin: Skin color, texture, tugor normal, no rashes or lesions. Neurologic: Alert oriented x3 cranial nerves II through XII intact generalized weakness calling sleep in the middle of her interview., no motor deficit, no abnormal balance or gait. ASSESSMENT AND PLAN: _Acute respiratory failure: Secondary to advanced COPD with severe hypoxia and pulmonary acidosis, patient was started on p.o. updraft and steroid at this point. She was on mechanical ventilation for 48 hours was extubated but has been doing much better last 24 hours was transferred to the floor on supplemental oxygen 2 L doing very well. _COPD exacerbation: She is off mechanical ventilation still on oxygen supplement required 2 L nasal cannula to keep her pulse ox above 90 percentile. _Mild diastolic congestive heart failure referral for an echocardiogram will be done patient would benefit from more oxygen, back on blood pressure medication with metoprolol, amlodipine and valsartan will add smaller dose of diuretics at this point. _Severe bronchitis: Was on Rocephin early was taking off medication doing very well, she is not on any antibiotics. _Secondary polycythemia: Most likely secondary to COPD and pulmonary hypertension continue to watch blood counts specially with mild hydration to make sure hemoglobin is again to climb higher than what it is otherwise might require phlebotomy. _Hypertension: Remain on valsartan 320, amlodipine 5 and metoprolol succinate 100 mg daily. Blood pressure seems to be well-controlled. _Hypothyroidism: Will continue levothyroxine 75 mcg daily. Discussion: She is doing well last 24 hours continue oxygen supplement with pulse ox above 92 percentile arrangement again for home with home care today with family help patient will be discharged hopefully home today. Hospital course: Patient was admitted on 12/05/2023 for acute respiratory failure with severe COPD exacerbation worsening dyspnea and shortness of breath shortly after with her polycythemia and worsening respiratory failure along with respiratory acidosis patient was intubated requiring mechanical ventilation was in the ICU for 48 hours was seen pulmonary/critical care she was extubated successfully on Saturday and transferred out of the ICU has been on 2 L of oxygen still has BiPAP on the side with did not require to use BiPAP last 24 hours. Will require oxygen at home along with updraft treatment and will require further help with visiting nurse and probably physical therapy. Overall with her presentation on the consistent with COPD exacerbation and? Of bronchitis with no sign of pneumonitis or pneumonia no opacification or consolidation was found no tumor growth that purely advanced COPD has not been hospitalized in long time and over compensated for years finally with the cause of her hypoxia along with hypercapnia and respiratory failure patient needed to be hospitalized and start supplemental oxygen updraft treatment may be used, The patient will continue to follow-up with pulmonary at this point and will add steroid-based nebulizer. Antibiotic was stopped 48 hours after admission no sign of infection was found did not require any antibiotics. Echocardiogram revealed left ventricular ejection fraction of 55-60 percentile with no major valvular heart disease. No pericardial effusion. Time spent on patient discharge was over 35 minutes. Plan - Discharge Summary New Discharge Prescriptions: New Formoterol Fumarate [Perforomist] 20 mcg INHALATION RT-BID #60 ml predniSONE 10 mg PO DAILY #41 tab Continue Budesonide [Pulmicort] 0.5 mg INHALATION RT-BID amLODIPine [Norvasc] 5 mg PO DAILY Metoprolol Succinate (ER) [Toprol XL] 100 mg PO DAILY Famotidine [Pepcid] 20 mg PO DAILY Valsartan 320 mg PO DAILY Levothyroxine Sodium [Synthroid] 75 mcg PO DAILY Ipratropium-Albuterol Nebulize [Duoneb 0.5 mg-3 mg/3 ml Soln] 3 ml INHALATION RT-QID Discharge Medication List Budesonide [Pulmicort] 0.5 mg INHALATION RT-BID 12/05/23 [History] Famotidine [Pepcid] 20 mg PO DAILY 12/05/23 [History] Ipratropium-Albuterol Nebulize [Duoneb 0.5 mg-3 mg/3 ml Soln] 3 ml INHALATION RT-QID 12/05/23 [History] Levothyroxine Sodium [Synthroid] 75 mcg PO DAILY 12/05/23 [History] Metoprolol Succinate (ER) [Toprol XL] 100 mg PO DAILY 12/05/23 [History] Valsartan 320 mg PO DAILY 12/05/23 [History] amLODIPine [Norvasc] 5 mg PO DAILY 12/05/23 [History] Formoterol Fumarate [Perforomist] 20 mcg INHALATION RT-BID #60 ml 12/10/23 [Rx] predniSONE 10 mg PO DAILY #41 tab 12/10/23 [Rx] Follow up Appointment(s)/Referral(s): Jared Lynn MD [Primary Care Provider] - 1-2 days Kavita Pagan MD [STAFF PHYSICIAN] - 1 Week Discharge/Stand Alone Forms: Who Do I Call? Discharge Disposition: HOME WITH HOME HEALTH SERVICES
[2023-12-10 09:02] VITALS: BP 128/68; PULSE 67; RESP 18; TEMP 98.3
--- NOTE | 2023-12-10 12:36 | P.PN ---
Subjective Progress Note Date: 12/10/23 Principal diagnosis: Acute hypoxic and hypercapnic respiratory failure secondary to acute COPD exacerbation Patient is a 73-year-old female with past medical history significant for COPD. Patient was admitted with COPD exacerbation as a 3 S. overflow in the emergency department. I received a call on this patient late last night. Apparently, the patient had been unresponsive while in the ER, and placed on BiPAP by the ER provider. I do not believe the brickmason contractor was called. After 40 minutes, a follow-up blood gas indicated worsening severe hypercapnic respiratory failure. PaO2 of 61, pCO2 greater than 98, pH of 7.18. She was on BiPAP 12/6 and FiO2 of 40%. Pulling tidal volumes of less than 100. Patient now comatose, unable to protect airway. She was emergently intubated by the DINING CAR WAITER/WAITRESS. Postoperative chest x-ray showing the endotracheal tube approximately 5 cm above the srinivasan. Orogastric tube courses into the stomach. No obvious acute cardiopulmonary process. Hyperinflation consistent with COPD. I am evaluating this patient in trauma bay 1. She is intubated. Current ventilator settings include AC, a respiratory rate of 24, tidal volume of 350, FiO2 of 100%, PEEP of 5. The respiratory therapist obtained a repeat ABG showing improvement in the patient's acid-base balance, PaO2 297, pCO2 61, pH of 7.33. FiO2 was dropped to 60%. Patient is sedated on propofol at 50 mcg/kg/min.. Synchronous mechanical ventilator. Peak pressures are elevated at 33; static airway pressure 16, and indicating increased airway resistance. No significant airway secretions. Lung sounds are markedly diminished throughout. Blood pressure is a little hypotensive at the moment. We will give a 1 L fluid bolus. CBC: WBC count 8.1, hemoglobin 18, hematocrit 57.7, platelets 173. CMP: Sodium 139, potassium 5, chloride 99, serum bicarb 34, BUN 27, creatinine 0.68, glucose 101. Lactic 1.4. Troponin less than 0.012. NT proBNP 3490. D-dimer was elevated at 1.34. A CT angio protocol was done. No evidence of pulmonary embolism. Small left pleural effusion with associated atelectasis. Moderate centrilobular emphysematous changes. No obvious focal consolidations. Some nonspecific mildly enlarged mediastinal lymphadenopathy. Patient on empiric antibiotics in the form azithromycin and Rocephin. Viral screen negative for influenza, RSV, COVID. Afebrile. Patient is going to be transferred to the intensive care unit when bed available. 12/07/2023, the patient remains intubated on mechanical ventilator. This morning, the patient is on propofol which is running at 40 mcg/kg/min. The patient is intubated by #7 orotracheal tube. The patient remains on assist- control mode of mechanical ventilation at rate of 14, tidal volume of 350, FiO2 40% with a PEEP of 5. Blood gas showed pH of 7.36 with a pCO2 of 49 and pO2 of 62. Chest x-ray findings remain essentially unchanged and there is no airspace disease or consolidation. The patient's BP is stable. The white cell count is 11 with a hemoglobin 14.4. Count of 123. BUN 38 with a creatinine of 0.8 and a sodium levels at 137 with a potassium level of 4.0 and a chloride is 107. Procalcitonin level is at 0.08. Remains on bronchodilators. Remains on IV Solu-Medrol. Remains on a combination of Rocephin and Zithromax. The patient has no significant respiratory secretions. Peak airway pressure is around 28. No significant auto PEEP 12/08/2023, patient is being seen for a follow-up. The patient was weaned off the mechanical ventilator and the patient was extubated yesterday without any major difficulties. This morning, she is sitting up in a chair and she is currently on 3 days of oxygen by nasal cannula with a pulse ox of 98%. The chest x-ray from today was repeated and the ET tube has been removed. There is a new small focal opacity in the left costophrenic angle. Otherwise, no other airspace disease. The patient's white cell count is currently at 20 with a below 15.8 and a platelet count of 122. Sodium is at 140, bicarb is at 31, BUN 37 with a creatinine of 0.7. Procalcitonin level is at 0.08. The patient is communicating. Denies having any chest pain. She has recovered from acute hypoxic/hypercapnic respiratory failure due to COPD exacerbation. The patient is seen today December 09, 2023 in follow-up on the selective care unit. She is currently sitting up in bed. Awake and alert in no acute distress. Maintaining good O2 saturations in the 90s on 2 L/min per nasal cannula. She has been afebrile. Hemodynamically stable. She is improving. She remains on DuoNeb inhalations, Pulmicort and Perforomist inhalations, Solu- Medrol. Chest x-ray reveals evidence of COPD with trace pleural effusions left greater than right. White count 16.9. Hemoglobin 15.0. Platelets 119. Sodium 140. Potassium 5.1. Bicarb 35. BUN 42. Creatinine 0.70. Procalcitonin was 0.08. Patient was seen today on 12/10/2023, patient is feeling better, breathing easier, remains on oxygen, discharge planning is in progress. Patient will likely go home today, and she will have follow-up in our office with Dr. Osorio in the next 2 weeks. Objective - Vital Signs Vital signs: Vital Signs Temp 98.3 F 12/10/23 09:00 Pulse 67 12/10/23 09:00 Resp 18 12/10/23 09:00 BP 128/68 12/10/23 09:00 Pulse Ox 96 12/10/23 09:00 FiO2 30 12/08/23 08:54 Intake & Output 12/09/23 12/10/23 12/10/23 18:59 06:59 18:59 Intake Total 810 Balance 810 Weight 59.2 kg 59.6 kg Intake: Intake, IV Titration 50 Amount cefTRIAXone 1 gm In 50 Sodium Chloride 0.9% 50 ml @ 100 mls/hr IVPB Q24HR [facility] Rx#:[id number] Oral 760 Other: Voiding Method Toilet Toilet # Voids 1 - Exam GENERAL EXAM: 73-year-old female in no distress HEAD: Normocephalic. EYES: Normal reaction of pupils, equal size. NOSE: Clear with pink turbinates. THROAT: No erythema or exudates. NECK: No masses, no JVD. CHEST: No chest wall deformity. LUNGS: Equal air entry clear bilaterally no rhonchi no wheezes CVS: S1 and S2 normal with no audible murmur, regular rhythm. ABDOMEN: No hepatosplenomegaly, normal bowel sounds, no guarding or rigidity. SKIN: No rashes CENTRAL NERVOUS SYSTEM: No focal deficits, tone is normal in all 4 extremities. EXTREMITIES: There is no peripheral edema. No clubbing, no cyanosis. Peripheral pulses are intact. - Labs CBC & Chem 7: 12/09/23 06:56 12/09/23 06:56 Labs: Abnormal Lab Results - Last 24 Hours (Table) 12/09/23 12/09/23 12/10/23 Range/Units 16:45 20:26 05:57 POC Glucose (mg/dL) 120 H 137 H 118 H (70-110) mg/dL Microbiology - Last 24 Hours (Table) 12/06/23 16:17 Gram Stain - Final Sputum Sputum Culture - Final Assessment and Plan Assessment: Impression: Acute hypoxemic and hypercapnic respiratory failure, secondary to acute COPD exacerbation, requiring intubation mechanical ventilation Hypercapnic metabolic encephalopathy, resolved Chronic obstructive pulmonary disease Polycythemia History of hypertension History of hypothyroidism Recommendation: Agree with discharge planning patient to be discharged on bronchodilators, prednisone burst and taper, and follow-up on outpatient basis with Dr. Good, Time with Patient: Less than 30
== END 2023-12-10 12:13 | disposition home health service (06) | DRG 208 ==
LOC: EC 09:55 → 3SCARD 15:20 → 2SICU 12-06 00:10 → 3SCARD 12-08 09:55
PROVIDERS: ADMIT Internal Medicine Geriatric Medicine; ATTEND Internal Medicine Geriatric Medicine
PROC: 5A1945Z Respiratory Ventilation, 24-96 Consecutive Hours (ICD-10-PCS; principal; 2023-12-05)
PROC: 0BH17EZ Insertion of Endotracheal Airway into Trachea, Via Natural or Artificial Opening (ICD-10-PCS; 2023-12-05)
PROC: 5A09457 Assistance with Respiratory Ventilation, 24-96 Consecutive Hours, Continuous Positive Airway Pressure (ICD-10-PCS; 2023-12-05)
DX: J96.02 Acute respiratory failure with hypercapnia (principal); G93.41 Metabolic encephalopathy; J44.1 Chronic obstructive pulmonary disease with (acute) exacerbation; I50.32 Chronic diastolic (congestive) heart failure; E87.20 Acidosis, unspecified; J98.11 Atelectasis; E03.9 Hypothyroidism, unspecified; Z79.890 Hormone replacement therapy; I11.0 Hypertensive heart disease with heart failure; D75.1 Secondary polycythemia; I27.20 Pulmonary hypertension, unspecified; G89.29 Other chronic pain; R00.0 Tachycardia, unspecified; M54.50 Low back pain, unspecified; E78.5 Hyperlipidemia, unspecified; I35.1 Nonrheumatic aortic (valve) insufficiency; R59.0 Localized enlarged lymph nodes; Z82.5 Family history of asthma and other chronic lower respiratory diseases; Z79.899 Other long term (current) drug therapy; Z82.49 Family history of ischemic heart disease and other diseases of the circulatory system; Z87.891 Personal history of nicotine dependence
CPT/HCPCS: 36415; 36600; 71045; 71046; 71275; 80048; 80053; 82805; 83605; 83735; 83880; 84132; 84145; 84484; 85025; 85027; 85379; 85610; 85730; 87070; 87205; 87636; 93005; 93306; 94002; 94003; 94640; 94660; 94760; 96365; 96366; 96367; 96372; 96375; 99291

== ENCOUNTER 2024-08-26 09:24 | Observation (INO) | payer MEDICARE ==
--- NOTE | 2024-08-26 10:15 | ED ---
General Adult HPI - General Chief complaint: Chest Pain Stated complaint: Chest/Back pain Time Seen by Provider: 08/26/24 09:41 Source: patient, family Mode of arrival: ambulatory Limitations: no limitations - History of Present Illness Initial comments: Dictation was produced using [employer] dictation software. please excuse any grammatical, word or spelling errors. Chief Complaint: 73-year-old female with 2 days of chest pain History of Present Illness: Patient 73-year-old female presents emergency department with family for 2 days of chest pain. Patient has been having achy like some symptoms to her substernal chest epigastric region. Sometimes it radiates to the back. She did have some nausea yesterday. No associated diaphoresis. Patient has cardiac history not sure if she has any coronary artery disease. The ROS documented in this emergency department record has been reviewed and confirmed by me. Those systems with pertinent positive or negative responses have been documented in the HPI. All other systems are other negative and/or noncontributory. - Related Data Home Medications Medication Instructions Recorded Confirmed Budesonide [Pulmicort] 0.5 mg INHALATION RT-BID 12/05/23 12/05/23 Famotidine [Pepcid] 20 mg PO DAILY 12/05/23 12/05/23 Ipratropium-Albuterol Nebulize 3 ml INHALATION RT-QID 12/05/23 12/05/23 [Duoneb 0.5 mg-3 mg/3 ml Soln] Levothyroxine Sodium [Synthroid] 75 mcg PO DAILY 12/05/23 12/05/23 Metoprolol Succinate (ER) [Toprol 100 mg PO DAILY 12/05/23 12/05/23 XL] Valsartan 320 mg PO DAILY 12/05/23 12/05/23 amLODIPine [Norvasc] 5 mg PO DAILY 12/05/23 12/05/23 Previous Rx's Medication Instructions Recorded Formoterol Fumarate [Perforomist] 20 mcg INHALATION RT-BID #60 ml 12/10/23 predniSONE 10 mg PO DAILY #41 tab 12/10/23 Allergies Allergy/AdvReac Type Severity Reaction Status Date / Time No Known Allergies Allergy Verified 12/05/23 10:06 Review of Systems ROS Statement: Those systems with pertinent positive or pertinent negative responses have been documented in the HPI. ROS Other: All systems not noted in ROS Statement are negative. Past Medical History Past Medical History: Chest Pain / Angina, COPD, GERD/Reflux, Hypertension Additional Past Medical History / Comment(s): asthma as a child, psoriasis History of Any Multi-Drug Resistant Organisms: None Reported Past Surgical History: Tonsillectomy Additional Past Surgical History / Comment(s): D&C 40+ years ago Past Anesthesia/Blood Transfusion Reactions: No Reported Reaction, Unable to Obtain Additional Past Anesthesia/Blood Transfusion Reaction / Comment(s): pt. unable to answer while intubated and sedated, per sister "no reported reaction" Past Psychological History: No Psychological Hx Reported Smoking Status: Former smoker Past Alcohol Use History: None Reported Past Drug Use History: None Reported - Past Family History Father Family Medical History: Cancer Additional Family Medical History / Comment(s): lung cancer 1999 Mother Family Medical History: Hypertension Brother(s) Family Medical History: COPD General Exam - General Exam Comments Initial Comments: PHYSICAL EXAM: General Impression: Alert and oriented x3, not in acute distress HEENT: Normocephalic atraumatic, extra-ocular movements intact, pupils equal and reactive to light bilaterally, mucous membranes moist. Cardiovascular: Heart regular rate and rhythm Chest: Able to complete full sentences, no retractions, no tachypnea Abdomen: abdomen soft, non-tender, non-distended, no organomegaly Musculoskeletal: Pulses present and equal in all extremities, no peripheral edema Motor: no focal deficits noted Neurological: CN II-XII grossly intact, no focal motor or sensory deficits noted Skin: Intact with no visualized rashes Psych: Normal affect and mood Limitations: no limitations Course Vital Signs 08/26/24 08/26/24 09:35 11:39 Temperature 98.1 F Pulse Rate 66 60 Respiratory 220 H 13 Rate Blood Pressure 139/63 129/66 O2 Sat by Pulse 97 99 Oximetry EKG Findings - EKG Comments: EKG Findings:: My EKG interpretation: Ventricular rate 65, sinus rhythm, right bundle branch block, AK 158, QRS 134, QTc 431. No AK prolongation, no QTC prolongation, no ST or T-wave changes noted. EKG compared to December 05, 2023 showing no changes. Overall, this EKG is unremarkable Medical Decision Making - Medical Decision Making Was pt. sent in by a medical professional or institution (, PA, TRACK TEMPLATE MAKER, urgent care, hospital, or fdc...) When possible be specific @ -No Did you speak to anyone other than the patient for history (EMS, parent, family, police, friend...)? What history was obtained from this source @ -Niece in law at the bedside Did you review nursing and triage notes (agree or disagree)? Why? @ -I reviewed and agree with nursing and triage notes Were old charts reviewed (outside hosp., previous admission, EMS record, old EKG, old radiological studies, urgent care reports/EKG's, fdc records)? Report findings @ -No old charts were reviewed Differential Diagnosis (chest pain, altered mental status, abdominal pain women, abdominal pain men, vaginal bleeding, musculoskeletal, weakness, fever, dyspnea, syncope, headache, dizziness, GI bleed, back pain, seizure, CVA, palpatations, mental health)? @ -Differential Chest Pain: Stable Angina, Unstable Angina, STEMI, NSTEMI Aortic Dissection, Pneumothorax, Musculoskeletal, Esophageal Spasm GERD, Cholecystitis, Pancreatitis, Zoster, t his is not meant to be an all-inclusive list. EKG interpreted by me (3pts min.). @ -See above X-rays interpreted by me (1pt min.). @ -Chest x-ray is nonacute CT interpreted by me (1pt min.). @ -None done U/S interpreted by me (1pt. min.). @ -None done What testing was considered but not performed or refused? (CT, X-rays, U/S, labs)? Why? @ -None What meds were considered but not given or refused? Why? @ -None Was smoking cessation discussed for >3mins.? @ -No Were there social determinants of health that impacted care today? How? (Homelessness, low income, unemployed, alcoholism, drug addiction, transportation, low edu. Level, literacy, decrease access to med. care, usp, rehab)? @ -No Was there de-escalation of care discussed even if they declined (Discuss DNR or withdrawal of care, Hospice)? DNR status @ -No What co-morbidities impacted this encounter? (DM, HTN, Smoking, COPD, CAD, Cancer, CVA, ARF, Chemo, Hep., AIDS, mental health diagnosis, sleep apnea, morbid obesity)? @ -None Was patient admitted / discharged? Hospital course, mention meds given and route, prescriptions, significant lab abnormalities, going to OR and other pertinent info. @ -73-year-old female with history of cardiac disease presents to the ER for chest pain. Vital signs upon arrival are within acceptable limits. EKG does not show signs of ischemia or infarction. Laboratory evaluation obtained. Troponin is negative. Rest of labs unremarkable. X-ray is nonacute. Patient given aspirin will be admitted observation cardiology consultation. Did you discuss the management of the patient with other professionals (professionals i.e. , PA, TRACK TEMPLATE MAKER, lab, RT, psych nurse, perinatal social worker, research/program director, teacher, community liaison officer, geriatric case manager)? Give summary @ -Case discussed with hospitalist for admission Was critical care preformed (if so, how long)? @ -No Undiagnosed new problem with uncertain prognosis? @ -No Drug Therapy requiring intensive monitoring for toxicity (Heparin, Nitro, Insulin, Cardizem)? @ -No Were any procedures done? @ -No Diagnosis/symptom? Acute, or Chronic, or Acute on Chronic? Uncomplicated (without systemic symptoms) or Complicated (systemic symptoms)? @ -Chest pain Side effects of treatment? @ -No Exacerbation, Progression, or Severe Exacerbation? @ -No Poses a threat to life or bodily function? How? (Chest pain, [place], [place], pneumonia, PE, COPD, DKA, ARF, appy, cholecystitis, CVA, Diverticulitis, Homicidal, Suicidal, threat to staff... and all critical care pts) @ -yes - Lab Data Result diagrams: 08/26/24 10:00 08/26/24 10:00 Lab Results 08/26/24 08/26/24 08/26/24 Range/Units 10:00 10:00 10:00 WBC 9.17 (4.50-10.00) 10*3/uL RBC 4.27 (4.10-5.20) 10*6/uL Hgb 13.3 (12.0-15.0) g/dL Hct 41.1 (37.2-46.3) % MCV 96.3 (80.0-97.0) fL MCH 31.1 (27.0-32.0) pg MCHC 32.4 (32.0-37.0) g/dL Plt Count 174 (140-440) 10*3/uL MPV 11.2 (9.5-12.2) fL Immature Gran % (Auto) 0.3 % Neutrophils % 78.5 % Lymphocytes % 10.8 % Monocytes % 8.9 % Eosinophils % 1.2 % Basophils % 0.3 % Immature Gran # 0.03 (0.00-0.04) 10*3/uL Neutrophils # 7.19 (1.80-7.70) 10*3/uL Lymphocytes # 0.99 (0.90-5.00) 10*3/uL Monocytes # 0.82 (0.20-1.00) 10*3/uL Eosinophils # 0.11 (0.04-0.35) 10*3/uL Basophils # 0.03 (0.00-0.10) 10*3/uL PT 10.0 (10.0-12.5) sec INR 0.9 (<1.2) APTT 22.1 (22.0-30.0) sec Sodium 139 (137-145) mmol/L Potassium 4.9 (3.5-5.1) mmol/L Chloride 97 L (98-107) mmol/L Carbon Dioxide 33 H (22-30) mmol/L Anion Gap 9 mmol/L BUN 26 H (7-17) mg/dL Creatinine 0.64 (0.52-1.04) mg/dL Est GFR (CKD-EPI)AfAm >90 (>60 ml/min/1.73 sqM) Est GFR (CKD-EPI)NonAf 88 (>60 ml/min/1.73 sqM) Glucose 107 H (74-99) mg/dL Calcium 9.5 (8.4-10.2) mg/dL Magnesium 1.8 (1.6-2.3) mg/dL Total Bilirubin 0.7 (0.2-1.3) mg/dL AST 28 (14-36) U/L ALT 22 (4-34) U/L Alkaline Phosphatase 69 (38-126) U/L Troponin I (0.000-0.034) ng/mL Total Protein 7.7 (6.3-8.2) g/dL Albumin 4.3 (3.5-5.0) g/dL 08/26/24 Range/Units 10:00 WBC (4.50-10.00) 10*3/uL RBC (4.10-5.20) 10*6/uL Hgb (12.0-15.0) g/dL Hct (37.2-46.3) % MCV (80.0-97.0) fL MCH (27.0-32.0) pg MCHC (32.0-37.0) g/dL Plt Count (140-440) 10*3/uL MPV (9.5-12.2) fL Immature Gran % (Auto) % Neutrophils % % Lymphocytes % % Monocytes % % Eosinophils % % Basophils % % Immature Gran # (0.00-0.04) 10*3/uL Neutrophils # (1.80-7.70) 10*3/uL Lymphocytes # (0.90-5.00) 10*3/uL Monocytes # (0.20-1.00) 10*3/uL Eosinophils # (0.04-0.35) 10*3/uL Basophils # (0.00-0.10) 10*3/uL PT (10.0-12.5) sec INR (<1.2) APTT (22.0-30.0) sec Sodium (137-145) mmol/L Potassium (3.5-5.1) mmol/L Chloride (98-107) mmol/L Carbon Dioxide (22-30) mmol/L Anion Gap mmol/L BUN (7-17) mg/dL Creatinine (0.52-1.04) mg/dL Est GFR (CKD-EPI)AfAm (>60 ml/min/1.73 sqM) Est GFR (CKD-EPI)NonAf (>60 ml/min/1.73 sqM) Glucose (74-99) mg/dL Calcium (8.4-10.2) mg/dL Magnesium (1.6-2.3) mg/dL Total Bilirubin (0.2-1.3) mg/dL AST (14-36) U/L ALT (4-34) U/L Alkaline Phosphatase (38-126) U/L Troponin I <0.012 (0.000-0.034) ng/mL Total Protein (6.3-8.2) g/dL Albumin (3.5-5.0) g/dL Disposition Clinical Impression: Chest pain Disposition: ADMITTED IP TO THIS HOSP Condition: Fair Referrals: Jared Lynn MD [Primary Care Provider] - 1-2 days Decision Time: 11:42
[2024-08-26 10:19] LABS: Basophils # (A) 0.03 10*3/uL (0.00-0.10); Basophils % (A) 0.3 %; Eosinophils # (A) 0.11 10*3/uL (0.04-0.35); Eosinophils % (A) 1.2 %; HCT 41.1 % (37.2-46.3); HGB 13.3 g/dL (12.0-15.0); Lymphocytes # (A) 0.99 10*3/uL (0.90-5.00); Lymphocytes % (A) 10.8 %; MCH 31.1 pg (27.0-32.0); MCHC 32.4 g/dL (32.0-37.0); MCV 96.3 fL (80.0-97.0); Monocytes # (A) 0.82 10*3/uL (0.20-1.00); Monocytes % (A) 8.9 %; Neutrophils # (A) 7.19 10*3/uL (1.80-7.70); Neutrophils % (A) 78.5 %; Platelet Count 174 10*3/uL (140-440); RBC 4.27 10*6/uL (4.10-5.20); RDW 13.1 % (11.5-14.5); WBC 9.17 10*3/uL (4.50-10.00)
[2024-08-26 10:41] LABS: INR 0.9 (<1.2); Partial Thromboplastin Time 22.1 sec (22.0-30.0); Prothrombin Time 10.0 sec (10.0-12.5)
[2024-08-26 10:45] LABS: ALT 22 U/L (4-34); AST 28 U/L (14-36); African American GFR (CKD) >90 (>60 ml/min/1.73 sqM); Albumin 4.3 g/dL (3.5-5.0); Alkaline Phosphatase 69 U/L (38-126); Anion Gap 9 mmol/L; Blood Urea Nitrogen 26 mg/dL (7-17); Calcium 9.5 mg/dL (8.4-10.2); Carbon Dioxide 33 mmol/L (22-30); Chloride 97 mmol/L (98-107); Glucose 107 mg/dL (74-99); Magnesium 1.8 mg/dL (1.6-2.3); Non-African American GFR(CKD) 88 (>60 ml/min/1.73 sqM); Potassium 4.9 mmol/L (3.5-5.1); Sodium 139 mmol/L (137-145); Total Protein 7.7 g/dL (6.3-8.2)
--- NOTE | 2024-08-26 11:00 | XR ---
EXAMINATION TYPE: XR chest 2V DATE OF EXAM: 08/26/2024 10:44 AM COMPARISON: Chest radiographs from 12/26/2023 TECHNIQUE: XR chest 2V Frontal and lateral views of the chest. CLINICAL INDICATION:Female, 73 years old with history of Chest Pain; FINDINGS: Lungs/Pleura: There is flattening of the diaphragm with increased lucency of the lungs. No evidence o f pneumothorax, pleural effusion or focal consolidation. Pulmonary vascularity: Unremarkable. Heart/mediastinum: Cardiomediastinal silhouette is unremarkable. Atherosclerotic calcifications are seen in the aorta. Musculoskeletal: No acute osseous pathology. IMPRESSION: 1. No acute cardiopulmonary disease process. 2. COPD changes. [facility], , 08/26/2024 10:57 AM
[2024-08-26] MEDS ORDERED: NITROGLYCERIN SL TABS 0.4 MG TAB SUBLINGUAL PRN (11:39)
[2024-08-26] MEDS: ASPIRIN 81 MG PO STA (11:50)
--- NOTE | 2024-08-26 13:27 | P.HPIM ---
History of Present Illness This is a pleasant 73 years old female with past medical history of multiple medical problems including COPD, chronic hypoxic respiratory failure and hypertension and asthma as a child Presents because of chest pain, daughter at bedside. Patient states she has this chest pain for about 2 days 3/10 central radiating around both lower margin of the rib cage down to the shoulder blade between 2 scapulae felt like pressures with no obvious precipitating relieving factors with no dyspnea or coughing. No other specific GI/ symptoms. No headache dizziness weakness numbness. She denies smoking alcohol illicit drugs Patient with no fever vital stable. She has unremarkable CBC INR, BMP LFT and troponin negative less than 0.012. Thank you Chest x-ray: No acute cardiopulmonary process. COPD changes EKG, sinus rhythm with no significant ST-T changes. Rate is 65/min Review of Systems Review of systems CONSTITUTIONAL: No fever, no malaise, no fatigue. HEENT: No recent visual problems or hearing problems. Denied any sore throat. CARDIOVASCULAR: No orthopnea, PND, no palpitations, no syncope. PULMONARY: No shortness of breath, no cough, no hemoptysis. GASTROINTESTINAL: No diarrhea, no nausea, no vomiting, no abdominal pain. Normoactive bowel sounds. NEUROLOGICAL: No headaches, no weakness, no numbness. HEMATOLOGICAL: Denies any bleeding or petechiae. GENITOURINARY: Denies any burning micturition, frequency, or urgency. MUSCULOSKELETAL/RHEUMATOLOGICAL: Denies any joint pain, swelling, or any muscle pain. ENDOCRINE: Denies any polyuria or polydipsia. Past Medical History Past Medical History: Chest Pain / Angina, COPD, GERD/Reflux, Hypertension Additional Past Medical History / Comment(s): asthma as a child, psoriasis History of Any Multi-Drug Resistant Organisms: None Reported Past Surgical History: Tonsillectomy Additional Past Surgical History / Comment(s): D&C 40+ years ago Past Anesthesia/Blood Transfusion Reactions: No Reported Reaction, Unable to Obtain Additional Past Anesthesia/Blood Transfusion Reaction / Comment(s): pt. unable to answer while intubated and sedated, per sister "no reported reaction" Past Psychological History: No Psychological Hx Reported Smoking Status: Former smoker Past Alcohol Use History: None Reported Past Drug Use History: None Reported - Past Family History Father Family Medical History: Cancer Additional Family Medical History / Comment(s): lung cancer 1999 Mother Family Medical History: Hypertension Brother(s) Family Medical History: COPD Medications and Allergies Home Medications Medication Instructions Recorded Confirmed Type Famotidine [Pepcid] 20 mg PO DAILY@0912/05/23 08/26/24 History Levothyroxine Sodium [Synthroid] 75 mcg PO DAILY@0800 12/05/23 08/26/24 History Metoprolol Succinate (ER) [Toprol 100 mg PO DAILY@89912/05/23 08/26/24 History XL] Valsartan 320 mg PO DAILY@89912/05/23 08/26/24 History amLODIPine [Norvasc] 5 mg PO DAILY@89912/05/23 08/26/24 History Formoterol Fumarate [Perforomist] 20 mcg INHALATION RT-BID #60 ml 12/10/23 08/26/24 Rx Budesonide [Pulmicort Flexhaler] 180 mcg INHALATION RT-BID 08/26/24 08/26/24 History Tiotropium 2.5 Mcg/Puff [Spiriva 2 puff INHALATION RT-DAILY 08/26/24 08/26/24 History Respimat 2.5 Mcg] Allergies Allergy/AdvReac Type Severity Reaction Status Date / Time No Known Allergies Allergy Verified 08/26/24 11:49 Physical Exam Vitals: Vital Signs Temp Pulse Resp BP Pulse Ox 08/26/24 12:00 63 16 135/86 95 08/26/24 11:39 60 13 129/66 99 08/26/24 09:35 98.1 F 66 220 H 139/63 97 Intake and Output 08/25/24 08/26/24 08/26/24 22:59 06:59 14:59 Other: Weight 50.802 kg GENERAL: The patient is alert and oriented x3, not in any acute distress. Well developed, well nourished. HEENT: Pupils are round and equally reacting to light. EOMI. No scleral icterus. No conjunctival pallor. Normocephalic, atraumatic. No pharyngeal erythema. No thyromegaly. CARDIOVASCULAR: S1 and S2 present. No murmurs, rubs, or gallops. PULMONARY: Chest is clear to auscultation, no wheezing , no crackles. ABDOMEN: Soft, nontender, nondistended, normoactive bowel sounds. No palpable organomegaly. MUSCULOSKELETAL: No joint swelling or deformity. EXTREMITIES: No cyanosis, clubbing, or pedal edema. NEUROLOGICAL: Gross neurological examination did not reveal any focal deficits. SKIN: No rashes. no petechiae. Results CBC & Chem 7: 08/26/24 10:00 08/26/24 10:00 Labs: Abnormal Lab Results - Last 24 Hours (Table) 08/26/24 Range/Units 10:00 Chloride 97 L (98-107) mmol/L Carbon Dioxide 33 H (22-30) mmol/L BUN 26 H (7-17) mg/dL Glucose 107 H (74-99) mg/dL Assessment and Plan Assessment: Chest pain, could be musculoskeletal. Rule out cardiac causes COPD with no acute exacerbation Chronic hypoxic respiratory failure Hypertension History of asthma as a child History of GERD gastroesophageal reflux disease Plan: Continue with aspirin Cardiology team consult Labs and medication were reviewed.. Continue same treatment. Continue with symptomatic treatment. Resume home medication. Monitor labs and vitals. DVT and GI prophylaxis. Further recommendations as per clinical course of the patient DVT prophylaxis: Subcutaneous heparin GI Prophylaxis: Pepcid
[2024-08-26] MEDS: FORMOTEROL FUMARATE 20 MCG/2 ML NEBU INHALATION SCH (20:07)
[2024-08-26] MEDS: FLUTICASONE 110 MCG INHALER INHALATION SCH (20:08)
[2024-08-27] MEDS ORDERED: DOBUTamine DRIP for NUC MED 500 MG in DEXTROSE/WATER 1 250ML.BAG IV PRN (07:54)
[2024-08-27] MEDS ORDERED: DOBUTamine DRIP for NUC MED 500 MG/250 ML BAG IV ONE (08:00)
[2024-08-27 08:38] LABS: Cholesterol 225.00 mg/dL (0.00-200.00); HDL Cholesterol 57.60 mg/dL (40.00-60.00); LDL Cholesterol,Calculated 127.2 mg/dL (0.0-131.0); Triglycerides 201.00 mg/dL (0.00-149.00); VLDL Calculation 40.20 mg/dL (5.00-40.00)
[2024-08-27] MEDS: TIOTROPIUM 2.5 MCG INHALER INHALATION SCH (08:52)
[2024-08-27] MEDS ORDERED: METOPROLOL SUCCINATE (ER) 100 MG TAB.ER.24H PO SCH (09:00)
[2024-08-27] MEDS: LEVOTHYROXINE 75 MCG TAB PO SCH (09:00)
[2024-08-27] MEDS ORDERED: ASPIRIN 325 MG TAB PO SCH (09:00)
[2024-08-27] MEDS: amLODIPine 5 MG TAB PO SCH (09:00)
[2024-08-27] MEDS: ASPIRIN 81 MG PO SCH (09:00)
[2024-08-27] MEDS: FAMOTIDINE 20 MG TAB PO SCH (09:00)
[2024-08-27] MEDS: VALSARTAN 160 MG TAB PO SCH (09:00)
--- NOTE | 2024-08-27 11:05 | P.CRDCN ---
History of Present Illness Consult date: 08/27/24 Consult reason: chest pain History of present illness: This is a 73-year-old female patient of Dr. Kristian Aleman with past medical history of hypertension, mild aortic regurgitation, family history of premature coronary artery disease, history of tobacco use and dependence. We have been asked to evaluate the patient for chest pain. Patient states that she developed chest pain while at home she initially it was just not feeling well and did not feel right in her chest. It was not quite a pressure but there was a sensation that was not normal for her. It was in the mid to low sternal area. She denies tenderness. No change with deep breathing. It started around 3-4 in the morning. She also had some nausea and vomited once. She denies abdominal pain. Blood pressure 122/77, heart rate in the 50s, pulse ox 98% on 2 L nasal cannula. -EKG: Sinus rhythm with right bundle branch block, PACs. -Chest x-ray: No acute findings. COPD changes. -Laboratory studies: Troponin negative x 3. Triglycerides 201, cholesterol 225, LDL 127. A1c 5.3, BUN 26 creatinine 0.64. CBC normal. -Home cardiac medications: Amlodipine 5 mg daily, succinate 100 mg daily, valsartan 320 mg daily. Patient is also on levothyroxine. -Echocardiogram performed 12/05/2023 reveals EF 55 to 60%. No mitral regurgitation. No tricuspid regurgitation. Trace pulmonic regurgitation. No pericardial effusion. - Lexiscan Cardiolite stress test performed in the office on 05/07/2020 was a normal myocardial perfusion and function. Review Of Systems: At the time of my exam: CONSTITUTIONAL: Denies fever or chills. HEENT: Denies blurred vision, vision changes, or eye pain. Denies hemoptysis CARDIOVASCULAR: Denies chest pain. Denies orthopnea. Denies PND. Denies pa lpitations RESPIRATORY: Denies shortness of breath. GASTROINTESTINAL: Denies abdominal pain. Denies nausea or vomiting. HEMATOLOGIC: Denies bleeding disorders. GENITOURINARY: Denies any blood in urine. SKIN: Denies puritis. Denies rash. Physical examination: Gen: This is a 73-year-old female in no acute distress VS: reviewed HEENT: Head is atraumatic, normocephalic. Pupils equal, round. Sclerae is anicteric. NECK: Supple. No JVD. LUNGS: Clear to auscultation. No wheezes or rhonchi. No intercostal retractions. HEART: Regular rate and rhythm. No murmur. ABDOMEN: Soft No tenderness. EXTREMITIES: No pedal edema. No calf tenderness. NEUROLOGICAL: Patient is awake, alert and oriented x3. Assessment: Atypical chest pain, acute coronary syndrome ruled out Recent nausea and vomiting x 1 Right bundle branch block Hypertension Mild aortic regurgitation Plan: Resume patient's home cardiac medications Hold beta-monica until after stress test Schedule patient for dobutamine stress echocardiogram today Start patient on atorvastatin 20 mg daily, aspirin 81 mg daily No need to repeat echocardiogram If stress test is unremarkable, patient is cleared for discharge from cardiology perspective and patient may follow-up in the office with Dr. Aleman in 2 weeks. Thank you kindly for this consultation. Nurse practitioner note has been reviewed, I agree with documented findings and plan of care. Patient was seen and examined. Past Medical History Past Medical History: Chest Pain / Angina, COPD, GERD/Reflux, Hypertension Additional Past Medical History / Comment(s): asthma as a child, psoriasis History of Any Multi-Drug Resistant Organisms: None Reported Past Surgical History: Tonsillectomy Additional Past Surgical History / Comment(s): D&C 40+ years ago Past Anesthesia/Blood Transfusion Reactions: No Reported Reaction, Unable to Obtain Additional Past Anesthesia/Blood Transfusion Reaction / Comment(s): pt. unable to answer while intubated and sedated, per sister "no reported reaction" Past Psychological History: No Psychological Hx Reported Smoking Status: Former smoker Past Alcohol Use History: None Reported Past Drug Use History: None Reported - Past Family History Father Family Medical History: Cancer Additional Family Medical History / Comment(s): lung cancer 1999 Mother Family Medical History: Hypertension Brother(s) Family Medical History: Asthma, COPD Additional Family Medical History / Comment(s): Home oxygen 2L, asthma as a child Medications and Allergies Home Medications Medication Instructions Recorded Confirmed Type Famotidine [Pepcid] 20 mg PO DAILY@0912/05/23 08/26/24 History Levothyroxine Sodium [Synthroid] 75 mcg PO DAILY@0812/05/23 08/26/24 History Metoprolol Succinate (ER) [Toprol 100 mg PO DAILY@89912/05/23 08/26/24 History XL] Valsartan 320 mg PO DAILY@89912/05/23 08/26/24 History amLODIPine [Norvasc] 5 mg PO DAILY@89912/05/23 08/26/24 History Formoterol Fumarate [Perforomist] 20 mcg INHALATION RT-BID #60 ml 12/10/23 08/26/24 Rx Budesonide [Pulmicort Flexhaler] 180 mcg INHALATION RT-BID 08/26/24 08/26/24 History Tiotropium 2.5 Mcg/Puff [Spiriva 2 puff INHALATION RT-DAILY 08/26/24 08/26/24 History Respimat 2.5 Mcg] Allergies Allergy/AdvReac Type Severity Reaction Status Date / Time No Known Allergies Allergy Verified 08/26/24 11:49 Physical Exam Vitals: Vital Signs Temp Pulse Pulse Resp BP BP Pulse Ox 08/27/24 03:14 97.9 F 61 15 110/71 100 08/26/24 20:23 68 08/26/24 20:10 65 08/26/24 18:45 98.2 F 55 L 17 129/76 97 08/26/24 16:15 98.2 F 56 L 18 147/77 97 08/26/24 15:54 63 16 134/73 98 08/26/24 14:30 49 L 20 134/71 99 08/26/24 12:00 63 16 135/86 95 08/26/24 11:39 60 13 129/66 99 08/26/24 09:35 98.1 F 66 220 H 139/63 97 Intake and Output 08/26/24 08/27/24 08/27/24 22:59 06:59 14:59 Intake Total 240 Balance 240 Intake: Oral 240 Other: Voiding Method Toilet # Voids 3 Weight 50.802 kg Results 08/26/24 10:00 08/26/24 10:00 Cardiac Enzymes 08/26/24 08/26/24 08/26/24 Range/Units 10:00 10:00 12:43 AST 28 (14-36) U/L Troponin I <0.012 <0.012 (0.000-0.034) ng/mL 08/26/24 Range/Units 15:41 AST (14-36) U/L Troponin I <0.012 (0.000-0.034) ng/mL Coagulation 08/26/24 Range/Units 10:00 PT 10.0 (10.0-12.5) sec APTT 22.1 (22.0-30.0) sec CBC 08/26/24 Range/Units 10:00 WBC 9.17 (4.50-10.00) 10*3/uL RBC 4.27 (4.10-5.20) 10*6/uL Hgb 13.3 (12.0-15.0) g/dL Hct 41.1 (37.2-46.3) % Plt Count 174 (140-440) 10*3/uL Comprehensive Metabolic Panel 08/26/24 Range/Units 10:00 Sodium 139 (137-145) mmol/L Potassium 4.9 (3.5-5.1) mmol/L Chloride 97 L (98-107) mmol/L Carbon Dioxide 33 H (22-30) mmol/L BUN 26 H (7-17) mg/dL Creatinine 0.64 (0.52-1.04) mg/dL Glucose 107 H (74-99) mg/dL Calcium 9.5 (8.4-10.2) mg/dL AST 28 (14-36) U/L ALT 22 (4-34) U/L Alkaline Phosphatase 69 (38-126) U/L Total Protein 7.7 (6.3-8.2) g/dL Albumin 4.3 (3.5-5.0) g/dL Current Medications Generic Name Dose Route Start Last Admin Trade Name Freq PRN Reason Stop Dose Admin Amlodipine Besylate 5 mg 08/27/24 09:00 Amlodipine 5 Mg Tab PO DAILY@0900 [facility] Aspirin 325 mg 08/27/24 09:00 Aspirin 325 Mg Tab PO DAILY [facility] Famotidine 20 mg 08/27/24 09:00 Famotidine 20 Mg Tab PO DAILY@0900 [facility] Fluticasone Propionate 1 puff 08/26/24 20:00 08/26/24 20:08 Fluticasone 110 Mcg Inhaler INHALATION 1 puff RT-BID BRUCE Administration Formoterol Fumarate 20 mcg 08/26/24 20:00 08/26/24 20:07 Formoterol Fumarate 20 Mcg/2 Ml Nebu INHALATION 20 mcg RT-BID BRUCE Administration Levothyroxine Sodium 75 mcg 08/27/24 08:00 Levothyroxine 75 Mcg Tab PO DAILY@0800 [facility] Metoprolol Succinate 100 mg 08/27/24 09:00 Metoprolol Succinate (Er) 100 Mg Tab.Er.24h PO DAILY@0900 [facility] Nitroglycerin 0.4 mg 08/26/24 11:39 Nitroglycerin Sl Tabs 0.4 Mg Tab SUBLINGUAL Q5M PRN Chest Pain Tiotropium [place] 2 puff 08/27/24 08:00 Tiotropium 2.5 Mcg Inhaler INHALATION RT-DAILY [facility] Valsartan 320 mg 08/27/24 09:00 Valsartan 160 Mg Tab PO DAILY@0900 [facility] Intake and Output 08/26/24 08/27/24 08/27/24 22:59 06:59 14:59 Intake Total 240 Balance 240 Intake: Oral 240 Other: Voiding Method Toilet # Voids 3 Weight 50.802 kg 08/26/24 10:00 08/26/24 10:00
[2024-08-27 14:29] VITALS: BP 117/74; RESP 16; TEMP 98.1
[2024-08-27] MEDS: METOPROLOL SUCCINATE (ER) 100 MG TAB.ER.24H PO SCH (14:32)
--- NOTE | 2024-08-27 15:17 | CA ---
Dobutamine Stress Echocardiogram Report Ashley Roberts Age: 73 Gender: F : 1950 Exam Date: 08/27/2024 11:49 Exam Location: [facility] Ordering Physician: Marisela Conner Referring Physician: Dalila NEGRON Laboratory Mechanical Technician: Skyler Rios RDCS Technologist: Ht (in): 64 Wt (lb): 110 Procedure CPT: Indication: chest pain, w definity ICD-9 Codes: Rhythm: Patient History: CHEST PAIN, HTN, PRIOR SMOKER, COPD, ASTHMA, EMPHYSEMA Cardiac Medications: Medications in past 24 hours: Contrast: Definity Total Dose (mL): 2 Stress Results Protocol: Dobutamine Peak Dose (???g/kg/min): 40 Duration (min:sec): Atropine:(mg) Target HR: 123 Double Product: [id number] Resting HR: 55 Resting BP: 112 / 78 Peak HR: 120 Peak BP: 126 / 61 Max Predicted HR: 145 83 % Max Predicted HR Stress Summary: BP Response: Reason for Termination: DIRECTED PER CHEMICALS FERMENTATION OPERATOR Cardiac Symptoms: NO SYMPTOMS ECG Analysis Resting EKG: Stress EKG: Arrhythmia: Echo Analysis Base Echo Analysis: Low Echo Anaylsis: Peak Echo Analysis: Recovery Echo: MEASUREMENTS (Male/Female) Normal Values CONCLUSIONS Reason chest discomfort hypertension history of smoking Dobutamine stress echo does not show any evidence for ischemia or arrhythmia No echocardiographic evidence for ischemia Patient had chest discomfort during dobutamine infusion without any ECG abnormalities and without any wall motion abnormalities Right bundle branch block morphology on twelve-lead EKG Dr. Jer Lobo MD (Electronically Signed) Final Date: 27 August 2024 15:16
[2024-08-27 18:27] VITALS: PULSE 62
[2024-08-27] MEDS ORDERED: ATORVASTATIN 40 MG TAB PO SCH (21:00)
--- NOTE | 2024-08-27 23:48 | P.DS ---
Providers Date of admission: 08/26/24 11:40 Attending physician: Palma Cox Consults: 08/26/24 11:39 Consult Physician Urgent Consulting Provider: Josef Hill Consult Reason/Comments: chest pain Do you want consulting provider notified?: Yes Primary care physician: Jared Lynn Hospital Course: Diagnoses: Chest pain, could be musculoskeletal. Has negative stress test and cleared by lay out helper COPD with no acute exacerbation Chronic hypoxic respiratory failure Hypertension History of asthma as a child History of GERD gastroesophageal reflux disease Hospital course: This is a pleasant 73 years old female with past medical history of multiple medical problems including COPD, chronic hypoxic respiratory failure and hypertension and asthma as a child Presents because of chest pain, patient evaluated by lay out helper, had negative cardiac stress test. Patient was cleared for discharge by lay out helper. Chest pain completely resolved upon discharge. No other new complaint. Patient ag reeable for discharge. Problems and management plan were discussed with the patient and he verbalized understanding and acceptance Patient was found stable and can be discharged home in guarded prognosis however he needs follow-up as an outpatient. Patient was instructed to follow up with PCP within one week and patient agrees Patient was instructed to follow-up with the lay out helper as per her discharge instructions Physical exam Gen: patient is a AAOx3, no distress CVS: S1-S2, RRR, no murmur Lungs: B/L CTA, no wheezing Abdomen: soft, no distention, no tenderness, positive bowel sounds Extremity: no leg edema or induration Time spent more than 35 minutes Patient Condition at Discharge: Fair Plan - Discharge Summary Discharge Rx Participant: Yes New Discharge Prescriptions: New Aspirin 81 mg PO DAILY #30 tab Atorvastatin [Lipitor] 20 mg PO DAILY #30 tablet Continue amLODIPine [Norvasc] 5 mg PO DAILY@0900 Metoprolol Succinate (ER) [Toprol XL] 100 mg PO DAILY@0900 Famotidine [Pepcid] 20 mg PO DAILY@0900 Valsartan 320 mg PO DAILY@0900 Budesonide [Pulmicort Flexhaler] 180 mcg INHALATION RT-BID Tiotropium 2.5 Mcg/Puff [Spiriva Respimat 2.5 Mcg] 2 puff INHALATION RT-DAILY Levothyroxine Sodium [Synthroid] 75 mcg PO DAILY@0800 Formoterol Fumarate [Perforomist] 20 mcg INHALATION RT-BID #60 ml Discharge Medication List Famotidine [Pepcid] 20 mg PO DAILY@0912/05/23 [History] Levothyroxine Sodium [Synthroid] 75 mcg PO DAILY@0812/05/23 [History] Metoprolol Succinate (ER) [Toprol XL] 100 mg PO DAILY@0912/05/23 [History] Valsartan 320 mg PO DAILY@89912/05/23 [History] amLODIPine [Norvasc] 5 mg PO DAILY@89912/05/23 [History] Formoterol Fumarate [Perforomist] 20 mcg INHALATION RT-BID #60 ml 12/10/23 [Rx] Budesonide [Pulmicort Flexhaler] 180 mcg INHALATION RT-BID 08/26/24 [History] Tiotropium 2.5 Mcg/Puff [Spiriva Respimat 2.5 Mcg] 2 puff INHALATION RT-DAILY 08/26/24 [History] Aspirin 81 mg PO DAILY #30 tab 08/27/24 [Rx] Atorvastatin [Lipitor] 20 mg PO DAILY #30 tablet 08/27/24 [Rx] Follow up Appointment(s)/Referral(s): Jared Lynn MD [Primary Care Provider] - 1-2 days Mono Aleman MD [STAFF PHYSICIAN] - 2 Weeks Activity/Diet/Wound Care/Special Instructions: heart healthy diet activity is restricted till you see your doctor Discharge Disposition: HOME SELF-CARE
== END 2024-08-27 19:20 | disposition home or self-care (01) ==
LOC: EC 09:24 → 6NMEDSUR 11:40
PROVIDERS: ADMIT Hospitalist; ATTEND Hospitalist
DX: R07.89 Other chest pain (principal); M54.9 Dorsalgia, unspecified; R11.2 Nausea with vomiting, unspecified; J44.9 Chronic obstructive pulmonary disease, unspecified; J96.11 Chronic respiratory failure with hypoxia; I35.1 Nonrheumatic aortic (valve) insufficiency; I45.10 Unspecified right bundle-branch block; I49.1 Atrial premature depolarization; I10 Essential (primary) hypertension; K21.9 Gastro-esophageal reflux disease without esophagitis; Z79.890 Hormone replacement therapy; Z79.82 Long term (current) use of aspirin; Z79.51 Long term (current) use of inhaled steroids; Z79.899 Other long term (current) drug therapy; Z87.891 Personal history of nicotine dependence; Z82.49 Family history of ischemic heart disease and other diseases of the circulatory system
CPT/HCPCS: 99285; 36415; 94640 ×3; 94760; 93005 ×2; 80061; 80053; 83690; 83735; 84484; 85025; 85610; 85730; 83036; 71046; G0378 ×2; C8930; J1250; Q9957; 93351